=== PATIENT | male | born 1930 | race Caucasian/White ===

== ENCOUNTER → 2017-03-04 | Outpatient (REF) | payer MEDICARE, BC ==
[~2017-03-04] MED LIST: /ESOM40CA PO; /MOXI40TA OR; /MOXI40TA PO; /TAMS4CA OR; ACET50TA PO; ALB2.5NEB INH; AMLO10TAB OR; ASPI81TA83 OR; ATEN100T OR; COMBVENT INH; FLOVENT INH; FURO20TA2 OR; OMEP20TA7 OR; PLAV75TA2 OR; PRED20TA OR; PRED20TA PO; SENO8.6T9 PO; SIMV10TA2 OR; TIMO0.5S OU; VITA100T16 OR; VITA25003 SL
[2017-03-04 13:37] LABS: PERCENT SATURATION 7.7 % (19.7-37.4)
[2017-03-04 13:38] LABS: FOLATE 5.9 NG/ML
== END ==
LOC: M LAB REF 12:05
PROVIDERS: ATTEND Family Medicine
DX: D64.9 Anemia, unspecified (principal)

== ENCOUNTER → 2018-02-05 | Outpatient (REF) | payer MEDICARE, BC ==
[2018-02-05 11:04] LABS: FERRITIN 23 NG/ML (26-388); IRON (FE) 38 UG/DL (65-175); PERCENT SATURATION 9.7 % (19.7-50.0); TOTAL IRON BINDING CAPACITY 393 UG/DL (250-450)
== END ==
LOC: M LAB REF 10:37
DX: D64.9 Anemia, unspecified (principal)
CPT/HCPCS: 83550

== ENCOUNTER → 2018-05-18 | Outpatient (REF) | payer MEDICARE, BC ==
[2018-05-19 15:08] LABS: FERRITIN 23 NG/ML (26-388); IRON (FE) 35 UG/DL (65-175); PERCENT SATURATION 9.1 % (19.7-50.0); TOTAL IRON BINDING CAPACITY 384 UG/DL (250-450)
== END ==
LOC: M LAB REF 13:15
DX: D64.9 Anemia, unspecified (principal)
CPT/HCPCS: 83550

== ENCOUNTER 2018-06-04 22:26 | Inpatient (IN) | payer MEDICARE, BC ==
[2018-06-04] MEDS: NS 1,000 ML IV (23:14)
[2018-06-04 23:24] LABS: BASO % 0.5 % (0.0-1.0); EOS % 0.3 % (0.0-3.0); HEMATOCRIT 31.7 % (42.0-52.0); HEMOGLOBIN 10.1 g/dl (13.5-17.5); IMMATURE GRANULOCYTE % 0.3 % (0-3.0); LYMPH # 1.3 10^3/uL (1.5-4.5); LYMPH % 15.5 % (24.0-44.0); MEAN CORPUSCULAR HEMOGLOBIN 27.1 pg (27.0-33.0); MEAN CORPUSCULAR HGB CONC 31.9 g/dl (32.0-36.5); MONO # 0.5 10^3/uL (0.0-0.8); MONO % 5.6 % (0.0-5.0); NEUTROPHILS # 6.7 10^3/uL (1.8-7.7); NEUTROPHILS % 77.8 % (36.0-66.0); PLATELET COUNT, AUTOMATED 188 10^3/uL (150-450); RED BLOOD COUNT 3.73 10^6/uL (4.30-6.10); WHITE BLOOD COUNT 8.6 10^3/uL (4.0-10.0)
[2018-06-04 23:40] LABS: AMMONIA 20 uMOL/L (<32)
[2018-06-04 23:46] LABS: ACETAMINOPHEN LEVEL < 2.0 UG/ML (10.0-30.0); ALBUMIN 3.1 GM/DL (3.2-5.2); ALBUMIN/GLOBULIN RATIO 0.94 (1.00-1.93); ALKALINE PHOSPHATASE 98 U/L (45-117); ALT/SGPT 14 U/L (12-78); ANION GAP 8 MEQ/L (8-16); AST/SGOT 16 U/L (7-37); BILIRUBIN,DIRECT 0.3 MG/DL (0.0-0.2); BILIRUBIN,TOTAL 0.6 MG/DL (0.2-1.0); BLOOD UREA NITROGEN 16 MG/DL (7-18); CALCIUM LEVEL 8.4 MG/DL (8.8-10.2); CARBON DIOXIDE LEVEL 28 MEQ/L (21-32); CHLORIDE LEVEL 106 MEQ/L (98-107); CPK CREATINE PHOSPHOKINASE 93 U/L (39-308); CREATININE FOR GFR 0.89 MG/DL (0.70-1.30); GLOMERULAR FILTRATION RATE > 60.0 (>35); GLUCOSE, FASTING 101 MG/DL (70-100); POTASSIUM SERUM 3.8 MEQ/L (3.5-5.1); SALICYLATE LEVEL < 1.7 MG/DL (5.0-30.0); SODIUM LEVEL 142 MEQ/L (136-145); TOTAL PROTEIN 6.4 GM/DL (6.4-8.2); TROPONIN I 0.05 NG/ML (< 0.10)
[2018-06-04 23:52] LABS: MB/CK RELATIVE INDEX 2.15 (< OR =4)
[2018-06-05] MEDS: PANTOPRAZOLE 40MG TAB (PROTONIX) PO (01:15)
[2018-06-05] MEDS ORDERED: IPRATROPIUM 0.5MG/ALBUTEROL 2.5MG INH SOL UD 3ML (DUONEB)(J7620) INH (01:15)
[2018-06-05] MEDS: HEPARIN SOD (PORCINE) 5000 UNITS/ML VIAL SC ×3 (05:47→20:17)
[2018-06-05 07:41] LABS: HEMATOCRIT 30.1 % (42.0-52.0); HEMOGLOBIN 9.6 g/dl (13.5-17.5); MEAN CORPUSCULAR HEMOGLOBIN 27.2 pg (27.0-33.0); MEAN CORPUSCULAR HGB CONC 31.9 g/dl (32.0-36.5); MEAN CORPUSCULAR VOLUME 85.3 fl (80.0-96.0); PLATELET COUNT, AUTOMATED 168 10^3/uL (150-450); RED BLOOD COUNT 3.53 10^6/uL (4.30-6.10); RED CELL DISTRIBUTION WIDTH 18.8 % (11.5-14.5); WHITE BLOOD COUNT 6.2 10^3/uL (4.0-10.0)
[2018-06-05 08:00] LABS: ANION GAP 8 MEQ/L (8-16); BLOOD UREA NITROGEN 13 MG/DL (7-18); CALCIUM LEVEL 8.2 MG/DL (8.8-10.2); CARBON DIOXIDE LEVEL 26 MEQ/L (21-32); CHLORIDE LEVEL 108 MEQ/L (98-107); CREATININE FOR GFR 0.72 MG/DL (0.70-1.30); GLOMERULAR FILTRATION RATE > 60.0 (>35); GLUCOSE, FASTING 89 MG/DL (70-100); POTASSIUM SERUM 4.1 MEQ/L (3.5-5.1); SODIUM LEVEL 142 MEQ/L (136-145)
[2018-06-05] MEDS: CYANOCOBALAMIN 500 MCG TAB PO (08:59)
[2018-06-05] MEDS: ASPIRIN 81 MG ENTERIC TAB PO (09:00)
[2018-06-05] MEDS: amLODIPine 10 MG TAB PO (09:00)
[2018-06-05] MEDS: FLUTICASONE HFA 110 MCG 12 GM INHALER (FLOVENT) INH ×2 (11:15→19:02)
[2018-06-05] MEDS: TAMSULOSIN 0.4 MG CAP PO (20:16)
[2018-06-05] MEDS: SIMVASTATIN 20 MG TAB PO (20:16)
[2018-06-06] MEDS: HEPARIN SOD (PORCINE) 5000 UNITS/ML VIAL SC ×3 (05:57→23:33)
[2018-06-06 06:33] LABS: BASO % 0.4 % (0.0-1.0); EOS # 0.1 10^3/uL (0.0-0.50); EOS % 0.9 % (0.0-3.0); HEMATOCRIT 28.5 % (42.0-52.0); IMMATURE GRANULOCYTE % 0.3 % (0-3.0); LYMPH % 29.1 % (24.0-44.0); MEAN CORPUSCULAR HEMOGLOBIN 26.9 pg (27.0-33.0); MEAN CORPUSCULAR HGB CONC 31.6 g/dl (32.0-36.5); MEAN CORPUSCULAR VOLUME 85.3 fl (80.0-96.0); MONO # 0.4 10^3/uL (0.0-0.8); MONO % 6.2 % (0.0-5.0); NEUTROPHILS # 4.4 10^3/uL (1.8-7.7); NEUTROPHILS % 63.1 % (36.0-66.0); PLATELET COUNT, AUTOMATED 180 10^3/uL (150-450); RED BLOOD COUNT 3.34 10^6/uL (4.30-6.10); RED CELL DISTRIBUTION WIDTH 18.6 % (11.5-14.5)
[2018-06-06 07:02] LABS: ANION GAP 7 MEQ/L (8-16); BLOOD UREA NITROGEN 42 MG/DL (7-18); CALCIUM LEVEL 8.5 MG/DL (8.8-10.2); CARBON DIOXIDE LEVEL 26 MEQ/L (21-32); CHLORIDE LEVEL 105 MEQ/L (98-107); CREATININE FOR GFR 0.67 MG/DL (0.70-1.30); FERRITIN 17 NG/ML (26-388); GLOMERULAR FILTRATION RATE > 60.0 (>35); GLUCOSE, FASTING 98 MG/DL (70-100); IRON (FE) 103 UG/DL (65-175); POTASSIUM SERUM 4.6 MEQ/L (3.5-5.1); SODIUM LEVEL 138 MEQ/L (136-145)
[2018-06-06] MEDS: FLUTICASONE HFA 110 MCG 12 GM INHALER (FLOVENT) INH ×2 (08:55→21:26)
[2018-06-06] MEDS: ASPIRIN 81 MG ENTERIC TAB PO (08:57)
[2018-06-06] MEDS: amLODIPine 10 MG TAB PO (08:57)
[2018-06-06] MEDS: CYANOCOBALAMIN 500 MCG TAB PO (08:57)
[2018-06-06] MEDS: SIMVASTATIN 20 MG TAB PO (23:33)
[2018-06-06] MEDS: TAMSULOSIN 0.4 MG CAP PO (23:33)
[2018-06-07] MEDS: HEPARIN SOD (PORCINE) 5000 UNITS/ML VIAL SC ×3 (05:55→21:23)
[2018-06-07] MEDS: ASPIRIN 81 MG ENTERIC TAB PO (08:22)
[2018-06-07] MEDS: CYANOCOBALAMIN 500 MCG TAB PO (08:22)
[2018-06-07] MEDS: amLODIPine 10 MG TAB PO (08:22)
[2018-06-07] MEDS: FLUTICASONE HFA 110 MCG 12 GM INHALER (FLOVENT) INH ×2 (16:05→20:38)
[2018-06-07 20:16] LABS: BEDSIDE GLUCOSE 113 MG/DL (83-110)
[2018-06-07] MEDS: TAMSULOSIN 0.4 MG CAP PO (21:23)
[2018-06-07] MEDS: SIMVASTATIN 20 MG TAB PO (21:23)
[2018-06-08] MEDS: HEPARIN SOD (PORCINE) 5000 UNITS/ML VIAL SC ×3 (05:47→21:40)
[2018-06-08 06:37] LABS: HEMATOCRIT 20.7 % (42.0-52.0); MEAN CORPUSCULAR HEMOGLOBIN 26.6 pg (27.0-33.0); MEAN CORPUSCULAR HGB CONC 31.9 g/dl (32.0-36.5); MEAN CORPUSCULAR VOLUME 83.5 fl (80.0-96.0); PLATELET COUNT, AUTOMATED 156 10^3/uL (150-450); RED BLOOD COUNT 2.48 10^6/uL (4.30-6.10); RED CELL DISTRIBUTION WIDTH 18.9 % (11.5-14.5); WHITE BLOOD COUNT 4.8 10^3/uL (4.0-10.0)
[2018-06-08 06:49] LABS: ANION GAP 5 MEQ/L (8-16); BLOOD UREA NITROGEN 14 MG/DL (7-18); CALCIUM LEVEL 8.4 MG/DL (8.8-10.2); CARBON DIOXIDE LEVEL 27 MEQ/L (21-32); CHLORIDE LEVEL 106 MEQ/L (98-107); CREATININE FOR GFR 0.68 MG/DL (0.70-1.30); GLOMERULAR FILTRATION RATE > 60.0 (>35); GLUCOSE, FASTING 92 MG/DL (70-100); HEMOGLOBIN 6.6 g/dl (13.5-17.5); POTASSIUM SERUM 4.1 MEQ/L (3.5-5.1); SODIUM LEVEL 138 MEQ/L (136-145)
[2018-06-08] MEDS: FLUTICASONE HFA 110 MCG 12 GM INHALER (FLOVENT) INH ×2 (07:38→21:00)
[2018-06-08 08:47] LABS: BASO % 0.6 % (0.0-1.0); EOS # 0.1 10^3/uL (0.0-0.50); EOS % 1.7 % (0.0-3.0); IMMATURE GRANULOCYTE % 0.4 % (0-3.0); LYMPH # 1.2 10^3/uL (1.5-4.5); LYMPH % 25.9 % (24.0-44.0); MONO # 0.3 10^3/uL (0.0-0.8); MONO % 7.3 % (0.0-5.0); NEUTROPHILS % 64.1 % (36.0-66.0)
[2018-06-08 08:48] LABS: DIFF SLIDE NUMBER 52; PLATELET ESTIMATE NORMAL (NORMAL)
[2018-06-08] MEDS: ASPIRIN 81 MG ENTERIC TAB PO (09:37)
[2018-06-08] MEDS: CYANOCOBALAMIN 500 MCG TAB PO (09:37)
[2018-06-08] MEDS: amLODIPine 10 MG TAB PO (09:46)
[2018-06-08 10:01] LABS: HEMATOCRIT 23.2 % (42.0-52.0); HEMOGLOBIN 7.4 g/dl (13.5-17.5); MEAN CORPUSCULAR HEMOGLOBIN 27.4 pg (27.0-33.0); MEAN CORPUSCULAR HGB CONC 31.9 g/dl (32.0-36.5); MEAN CORPUSCULAR VOLUME 85.9 fl (80.0-96.0); PLATELET COUNT, AUTOMATED 174 10^3/uL (150-450); RED CELL DISTRIBUTION WIDTH 19.2 % (11.5-14.5)
[2018-06-08] MEDS: TAMSULOSIN 0.4 MG CAP PO (21:40)
[2018-06-08] MEDS: SIMVASTATIN 20 MG TAB PO (21:40)
[2018-06-08] MEDS: ONDANSETRON 4 MG TAB (S0181) PO (21:40)
[2018-06-09] MEDS: HEPARIN SOD (PORCINE) 5000 UNITS/ML VIAL SC ×3 (05:45→21:25)
[2018-06-09] MEDS: FLUTICASONE HFA 110 MCG 12 GM INHALER (FLOVENT) INH ×2 (07:57→21:24)
[2018-06-09] MEDS: amLODIPine 10 MG TAB PO (09:00)
[2018-06-09] MEDS: ASPIRIN 81 MG ENTERIC TAB PO (09:11)
[2018-06-09] MEDS: CYANOCOBALAMIN 500 MCG TAB PO (09:12)
[2018-06-09] MEDS: ACETAMINOPHEN TAB 650MG DOSE (2X325MG) PO ×2 (09:12→21:26)
[2018-06-09 09:49] LABS: HEMATOCRIT 25.6 % (42.0-52.0); MEAN CORPUSCULAR HEMOGLOBIN 27.2 pg (27.0-33.0); MEAN CORPUSCULAR HGB CONC 31.3 g/dl (32.0-36.5); MEAN CORPUSCULAR VOLUME 87.1 fl (80.0-96.0); PLATELET COUNT, AUTOMATED 214 10^3/uL (150-450); RED BLOOD COUNT 2.94 10^6/uL (4.30-6.10); RED CELL DISTRIBUTION WIDTH 19.5 % (11.5-14.5); WHITE BLOOD COUNT 6.9 10^3/uL (4.0-10.0)
[2018-06-09] MEDS ORDERED: PILL CRUSHER/CUTTER 1 EACH XX (13:30)
[2018-06-09] MEDS: TAMSULOSIN 0.4 MG CAP PO (21:26)
[2018-06-09] MEDS: SIMVASTATIN 20 MG TAB PO (21:26)
[2018-06-10] MEDS: HEPARIN SOD (PORCINE) 5000 UNITS/ML VIAL SC ×3 (06:26→21:10)
[2018-06-10] MEDS: FLUTICASONE HFA 110 MCG 12 GM INHALER (FLOVENT) INH ×2 (07:24→19:58)
[2018-06-10] MEDS: amLODIPine 10 MG TAB PO (09:18)
[2018-06-10] MEDS: CYANOCOBALAMIN 500 MCG TAB PO (09:18)
[2018-06-10] MEDS: ASPIRIN 81 MG ENTERIC TAB PO (09:19)
[2018-06-10] MEDS: TAMSULOSIN 0.4 MG CAP PO (21:10)
[2018-06-10] MEDS: SIMVASTATIN 20 MG TAB PO (21:10)
[2018-06-10] MEDS: ACETAMINOPHEN TAB 650MG DOSE (2X325MG) PO (21:11)
[2018-06-11] MEDS: HEPARIN SOD (PORCINE) 5000 UNITS/ML VIAL SC ×3 (05:40→21:07)
[2018-06-11] MEDS: FLUTICASONE HFA 110 MCG 12 GM INHALER (FLOVENT) INH ×2 (07:40→21:17)
[2018-06-11] MEDS ORDERED: E-Z-PAQUE 96% w/w SUSP 176GM BTL As Ordered (08:17)
[2018-06-11] MEDS ORDERED: E-Z-GAS II EFFERVESCENT PACKET (SODIUM BICARB./CITRIC ACID/SIMETHICONE) As Ordered (08:17)
[2018-06-11] MEDS ORDERED: E-Z-HD 98% w/w 340GM SUSP BTL As Ordered (08:18)
[2018-06-11] MEDS: amLODIPine 10 MG TAB PO (09:28)
[2018-06-11] MEDS: ASPIRIN 81 MG ENTERIC TAB PO (09:29)
[2018-06-11] MEDS: CYANOCOBALAMIN 500 MCG TAB PO (09:31)
[2018-06-11 09:32] LABS: HEMATOCRIT 23.1 % (42.0-52.0); HEMOGLOBIN 7.4 g/dl (13.5-17.5); MEAN CORPUSCULAR HEMOGLOBIN 26.9 pg (27.0-33.0); PLATELET COUNT, AUTOMATED 203 10^3/uL (150-450); RED BLOOD COUNT 2.75 10^6/uL (4.30-6.10); RED CELL DISTRIBUTION WIDTH 19.1 % (11.5-14.5); WHITE BLOOD COUNT 5.6 10^3/uL (4.0-10.0)
[2018-06-11 09:55] LABS: ANION GAP 9 MEQ/L (8-16); BLOOD UREA NITROGEN 15 MG/DL (7-18); CALCIUM LEVEL 8.8 MG/DL (8.8-10.2); CARBON DIOXIDE LEVEL 28 MEQ/L (21-32); CHLORIDE LEVEL 101 MEQ/L (98-107); CREATININE FOR GFR 0.77 MG/DL (0.70-1.30); GLOMERULAR FILTRATION RATE > 60.0 (>35); GLUCOSE, FASTING 114 MG/DL (70-100); POTASSIUM SERUM 4.2 MEQ/L (3.5-5.1); SODIUM LEVEL 138 MEQ/L (136-145)
[2018-06-11] MEDS: ACETAMINOPHEN TAB 650MG DOSE (2X325MG) PO ×2 (11:24→21:07)
[2018-06-11] MEDS: TAMSULOSIN 0.4 MG CAP PO (21:07)
[2018-06-11] MEDS: SIMVASTATIN 20 MG TAB PO (21:07)
[2018-06-12] MEDS: HEPARIN SOD (PORCINE) 5000 UNITS/ML VIAL SC ×3 (05:29→20:33)
[2018-06-12] MEDS: FLUTICASONE HFA 110 MCG 12 GM INHALER (FLOVENT) INH ×2 (07:34→20:44)
[2018-06-12] MEDS: amLODIPine 10 MG TAB PO (09:48)
[2018-06-12] MEDS: ASPIRIN 81 MG ENTERIC TAB PO (09:48)
[2018-06-12] MEDS: CYANOCOBALAMIN 500 MCG TAB PO (09:48)
[2018-06-12] MEDS: SIMVASTATIN 20 MG TAB PO (20:33)
[2018-06-12] MEDS: TAMSULOSIN 0.4 MG CAP PO (20:33)
[2018-06-12] MEDS: ACETAMINOPHEN TAB 650MG DOSE (2X325MG) PO (20:33)
[2018-06-13] MEDS: HEPARIN SOD (PORCINE) 5000 UNITS/ML VIAL SC ×3 (05:41→21:20)
[2018-06-13] MEDS: FLUTICASONE HFA 110 MCG 12 GM INHALER (FLOVENT) INH ×2 (07:38→21:12)
[2018-06-13] MEDS: ASPIRIN 81 MG ENTERIC TAB PO (09:47)
[2018-06-13] MEDS: CYANOCOBALAMIN 500 MCG TAB PO (09:47)
[2018-06-13] MEDS: amLODIPine 10 MG TAB PO (09:54)
[2018-06-13] MEDS: ACETAMINOPHEN TAB 650MG DOSE (2X325MG) PO ×3 (18:23→23:14)
[2018-06-13] MEDS: TAMSULOSIN 0.4 MG CAP PO (21:21)
[2018-06-13] MEDS: SIMVASTATIN 20 MG TAB PO (21:21)
[2018-06-14] MEDS: HEPARIN SOD (PORCINE) 5000 UNITS/ML VIAL SC (06:09)
[2018-06-14 06:52] LABS: HEMATOCRIT 21.1 % (42.0-52.0); MEAN CORPUSCULAR HEMOGLOBIN 26.7 pg (27.0-33.0); MEAN CORPUSCULAR HGB CONC 31.8 g/dl (32.0-36.5); MEAN CORPUSCULAR VOLUME 84.1 fl (80.0-96.0); PLATELET COUNT, AUTOMATED 224 10^3/uL (150-450); RED BLOOD COUNT 2.51 10^6/uL (4.30-6.10); RED CELL DISTRIBUTION WIDTH 18.7 % (11.5-14.5)
[2018-06-14 07:02] LABS: HEMOGLOBIN 6.7 g/dl (13.5-17.5)
[2018-06-14 07:05] LABS: ANION GAP 8 MEQ/L (8-16); BLOOD UREA NITROGEN 17 MG/DL (7-18); CALCIUM LEVEL 8.5 MG/DL (8.8-10.2); CARBON DIOXIDE LEVEL 26 MEQ/L (21-32); CHLORIDE LEVEL 104 MEQ/L (98-107); CREATININE FOR GFR 0.74 MG/DL (0.70-1.30); GLOMERULAR FILTRATION RATE > 60.0 (>35); GLUCOSE, FASTING 105 MG/DL (70-100); POTASSIUM SERUM 4.1 MEQ/L (3.5-5.1); SODIUM LEVEL 138 MEQ/L (136-145)
[2018-06-14] MEDS: FLUTICASONE HFA 110 MCG 12 GM INHALER (FLOVENT) INH ×2 (07:28→20:44)
[2018-06-14] MEDS: amLODIPine 10 MG TAB PO (09:00)
[2018-06-14] MEDS: CYANOCOBALAMIN 500 MCG TAB PO (09:02)
[2018-06-14] MEDS: PANTOPRAZOLE 40MG INJ (PROTONIX) (C9113) IV ×2 (10:51→22:00)
[2018-06-14] MEDS: NS 500 ML IV (10:51)
[2018-06-14 11:12] LABS: IMMEDIATE SPIN CROSSMATCH 1 1
[2018-06-14 15:55] LABS: HEMATOCRIT 25.9 % (42.0-52.0); HEMOGLOBIN 8.2 g/dl (13.5-17.5); MEAN CORPUSCULAR HEMOGLOBIN 27.1 pg (27.0-33.0); MEAN CORPUSCULAR HGB CONC 31.7 g/dl (32.0-36.5); MEAN CORPUSCULAR VOLUME 85.5 fl (80.0-96.0); PLATELET COUNT, AUTOMATED 243 10^3/uL (150-450); RED BLOOD COUNT 3.03 10^6/uL (4.30-6.10); RED CELL DISTRIBUTION WIDTH 18.4 % (11.5-14.5); WHITE BLOOD COUNT 8.5 10^3/uL (4.0-10.0)
[2018-06-14 21:27] LABS: HEMATOCRIT 24.3 % (42.0-52.0); HEMOGLOBIN 7.8 g/dl (13.5-17.5); MEAN CORPUSCULAR HEMOGLOBIN 27.5 pg (27.0-33.0); MEAN CORPUSCULAR HGB CONC 32.1 g/dl (32.0-36.5); MEAN CORPUSCULAR VOLUME 85.6 fl (80.0-96.0); PLATELET COUNT, AUTOMATED 213 10^3/uL (150-450); RED BLOOD COUNT 2.84 10^6/uL (4.30-6.10); RED CELL DISTRIBUTION WIDTH 18.2 % (11.5-14.5); WHITE BLOOD COUNT 8.1 10^3/uL (4.0-10.0)
[2018-06-14] MEDS: ACETAMINOPHEN TAB 650MG DOSE (2X325MG) PO (21:59)
[2018-06-14] MEDS: TAMSULOSIN 0.4 MG CAP PO (21:59)
[2018-06-14] MEDS: SIMVASTATIN 20 MG TAB PO (21:59)
[2018-06-15 07:21] LABS: HEMATOCRIT 23.1 % (42.0-52.0); HEMOGLOBIN 7.4 g/dl (13.5-17.5); MEAN CORPUSCULAR HEMOGLOBIN 26.8 pg (27.0-33.0); MEAN CORPUSCULAR VOLUME 83.7 fl (80.0-96.0); PLATELET COUNT, AUTOMATED 198 10^3/uL (150-450); RED BLOOD COUNT 2.76 10^6/uL (4.30-6.10); RED CELL DISTRIBUTION WIDTH 18.2 % (11.5-14.5); WHITE BLOOD COUNT 6.2 10^3/uL (4.0-10.0)
[2018-06-15] MEDS: FLUTICASONE HFA 110 MCG 12 GM INHALER (FLOVENT) INH ×2 (07:26→21:00)
[2018-06-15 07:40] LABS: ANION GAP 7 MEQ/L (8-16); BLOOD UREA NITROGEN 15 MG/DL (7-18); CALCIUM LEVEL 8.4 MG/DL (8.8-10.2); CARBON DIOXIDE LEVEL 25 MEQ/L (21-32); CHLORIDE LEVEL 107 MEQ/L (98-107); CREATININE FOR GFR 0.76 MG/DL (0.70-1.30); GLOMERULAR FILTRATION RATE > 60.0 (>35); GLUCOSE, FASTING 86 MG/DL (70-100); POTASSIUM SERUM 3.9 MEQ/L (3.5-5.1); SODIUM LEVEL 139 MEQ/L (136-145)
[2018-06-15] MEDS: CYANOCOBALAMIN 500 MCG TAB PO (09:00)
[2018-06-15] MEDS: PANTOPRAZOLE 40MG INJ (PROTONIX) (C9113) IV ×2 (10:02→21:10)
[2018-06-15 11:22] LABS: IMMEDIATE SPIN CROSSMATCH 1 1
[2018-06-15 14:07] LABS: FOLATE 6.4 NG/ML (>5.4); VITAMIN B12 LEVEL 1131 PG/ML (247-911)
[2018-06-15 16:56] LABS: HEMATOCRIT 27.6 % (42.0-52.0); HEMOGLOBIN 8.9 g/dl (13.5-17.5); MEAN CORPUSCULAR HEMOGLOBIN 27.6 pg (27.0-33.0); MEAN CORPUSCULAR HGB CONC 32.2 g/dl (32.0-36.5); MEAN CORPUSCULAR VOLUME 85.7 fl (80.0-96.0); PLATELET COUNT, AUTOMATED 207 10^3/uL (150-450); RED BLOOD COUNT 3.22 10^6/uL (4.30-6.10); RED CELL DISTRIBUTION WIDTH 18.2 % (11.5-14.5); WHITE BLOOD COUNT 7.8 10^3/uL (4.0-10.0)
[2018-06-15] MEDS: TAMSULOSIN 0.4 MG CAP PO (21:11)
[2018-06-15] MEDS: SIMVASTATIN 20 MG TAB PO (21:11)
[2018-06-15] MEDS: ACETAMINOPHEN TAB 650MG DOSE (2X325MG) PO (21:11)
[2018-06-15 21:22] LABS: HEMATOCRIT 27.3 % (42.0-52.0); HEMOGLOBIN 8.9 g/dl (13.5-17.5); MEAN CORPUSCULAR HEMOGLOBIN 27.9 pg (27.0-33.0); MEAN CORPUSCULAR HGB CONC 32.6 g/dl (32.0-36.5); MEAN CORPUSCULAR VOLUME 85.6 fl (80.0-96.0); PLATELET COUNT, AUTOMATED 199 10^3/uL (150-450); RED BLOOD COUNT 3.19 10^6/uL (4.30-6.10); RED CELL DISTRIBUTION WIDTH 18.1 % (11.5-14.5); WHITE BLOOD COUNT 8.7 10^3/uL (4.0-10.0)
[2018-06-15] MEDS: BISACODYL 5 MG TAB PO (22:09)
[2018-06-16 07:16] LABS: HEMATOCRIT 29.9 % (42.0-52.0); HEMOGLOBIN 9.7 g/dl (13.5-17.5); MEAN CORPUSCULAR HGB CONC 32.4 g/dl (32.0-36.5); MEAN CORPUSCULAR VOLUME 86.4 fl (80.0-96.0); PLATELET COUNT, AUTOMATED 210 10^3/uL (150-450); RED BLOOD COUNT 3.46 10^6/uL (4.30-6.10); RED CELL DISTRIBUTION WIDTH 17.9 % (11.5-14.5); WHITE BLOOD COUNT 5.8 10^3/uL (4.0-10.0)
[2018-06-16 07:23] LABS: ANION GAP 7 MEQ/L (8-16); BLOOD UREA NITROGEN 12 MG/DL (7-18); CALCIUM LEVEL 8.7 MG/DL (8.8-10.2); CARBON DIOXIDE LEVEL 27 MEQ/L (21-32); CHLORIDE LEVEL 105 MEQ/L (98-107); CREATININE FOR GFR 0.75 MG/DL (0.70-1.30); GLOMERULAR FILTRATION RATE > 60.0 (>35); GLUCOSE, FASTING 98 MG/DL (70-100); POTASSIUM SERUM 3.9 MEQ/L (3.5-5.1); SODIUM LEVEL 139 MEQ/L (136-145)
[2018-06-16] MEDS: FLUTICASONE HFA 110 MCG 12 GM INHALER (FLOVENT) INH ×2 (07:29→22:25)
[2018-06-16] MEDS: CYANOCOBALAMIN 500 MCG TAB PO (11:19)
[2018-06-16] MEDS: PANTOPRAZOLE 40MG INJ (PROTONIX) (C9113) IV ×2 (11:19→21:56)
[2018-06-16] MEDS: SIMVASTATIN 20 MG TAB PO (21:56)
[2018-06-16] MEDS: TAMSULOSIN 0.4 MG CAP PO (21:56)
[2018-06-17 05:55] LABS: HEMOGLOBIN 9.1 g/dl (13.5-17.5); MEAN CORPUSCULAR HEMOGLOBIN 27.3 pg (27.0-33.0); MEAN CORPUSCULAR HGB CONC 32.5 g/dl (32.0-36.5); MEAN CORPUSCULAR VOLUME 84.1 fl (80.0-96.0); PLATELET COUNT, AUTOMATED 205 10^3/uL (150-450); RED BLOOD COUNT 3.33 10^6/uL (4.30-6.10); RED CELL DISTRIBUTION WIDTH 17.8 % (11.5-14.5); WHITE BLOOD COUNT 5.8 10^3/uL (4.0-10.0)
[2018-06-17 06:19] LABS: ANION GAP 6 MEQ/L (8-16); BLOOD UREA NITROGEN 14 MG/DL (7-18); CALCIUM LEVEL 8.6 MG/DL (8.8-10.2); CARBON DIOXIDE LEVEL 28 MEQ/L (21-32); CHLORIDE LEVEL 105 MEQ/L (98-107); CREATININE FOR GFR 0.71 MG/DL (0.70-1.30); GLOMERULAR FILTRATION RATE > 60.0 (>35); GLUCOSE, FASTING 89 MG/DL (70-100); POTASSIUM SERUM 4.1 MEQ/L (3.5-5.1); SODIUM LEVEL 139 MEQ/L (136-145)
[2018-06-17] MEDS: FLUTICASONE HFA 110 MCG 12 GM INHALER (FLOVENT) INH ×2 (07:52→21:10)
[2018-06-17] MEDS: PANTOPRAZOLE 40MG INJ (PROTONIX) (C9113) IV ×2 (09:21→20:18)
[2018-06-17] MEDS: CYANOCOBALAMIN 500 MCG TAB PO (09:21)
[2018-06-17] MEDS: SIMVASTATIN 20 MG TAB PO (20:21)
[2018-06-17] MEDS: TAMSULOSIN 0.4 MG CAP PO (20:21)
[2018-06-17] MEDS: BISACODYL 5 MG TAB PO (20:21)
[2018-06-17] MEDS: ACETAMINOPHEN TAB 650MG DOSE (2X325MG) PO (20:22)
[2018-06-18 06:20] LABS: HEMATOCRIT 30.6 % (42.0-52.0); HEMOGLOBIN 9.7 g/dl (13.5-17.5); MEAN CORPUSCULAR HEMOGLOBIN 27.4 pg (27.0-33.0); MEAN CORPUSCULAR HGB CONC 31.7 g/dl (32.0-36.5); MEAN CORPUSCULAR VOLUME 86.4 fl (80.0-96.0); PLATELET COUNT, AUTOMATED 201 10^3/uL (150-450); RED BLOOD COUNT 3.54 10^6/uL (4.30-6.10); RED CELL DISTRIBUTION WIDTH 17.8 % (11.5-14.5); WHITE BLOOD COUNT 5.7 10^3/uL (4.0-10.0)
[2018-06-18 06:38] LABS: ANION GAP 6 MEQ/L (8-16); BLOOD UREA NITROGEN 13 MG/DL (7-18); CALCIUM LEVEL 8.8 MG/DL (8.8-10.2); CARBON DIOXIDE LEVEL 27 MEQ/L (21-32); CHLORIDE LEVEL 104 MEQ/L (98-107); CREATININE FOR GFR 0.73 MG/DL (0.70-1.30); GLOMERULAR FILTRATION RATE > 60.0 (>35); GLUCOSE, FASTING 86 MG/DL (70-100); POTASSIUM SERUM 4.3 MEQ/L (3.5-5.1); SODIUM LEVEL 137 MEQ/L (136-145)
[2018-06-18] MEDS: FLUTICASONE HFA 110 MCG 12 GM INHALER (FLOVENT) INH (08:39)
[2018-06-18] MEDS: PANTOPRAZOLE 40MG TAB (PROTONIX) PO (09:00)
[2018-06-18] MEDS: CYANOCOBALAMIN 500 MCG TAB PO (09:00)
== END 2018-06-18 13:16 | DRG 884 ==
LOC: M ED INP 06-05 01:01 → M MS5PR 06-05 02:23 → M ED 22:26
PROC: 30233N1 Transfusion of Nonautologous Red Blood Cells into Peripheral Vein, Percutaneous Approach (ICD-10-PCS; principal; 2018-06-14)
DX: F03.90 Unspecified dementia, unspecified severity, without behavioral disturbance, psychotic disturbance, mood disturbance, and anxiety (principal); K62.5 Hemorrhage of anus and rectum; R53.1 Weakness; E86.0 Dehydration; I10 Essential (primary) hypertension; J44.9 Chronic obstructive pulmonary disease, unspecified; E78.5 Hyperlipidemia, unspecified; N40.0 Benign prostatic hyperplasia without lower urinary tract symptoms; D64.9 Anemia, unspecified; Z87.891 Personal history of nicotine dependence; K21.9 Gastro-esophageal reflux disease without esophagitis; Z79.82 Long term (current) use of aspirin; Z79.899 Other long term (current) drug therapy; Z91.14 Patient's other noncompliance with medication regimen; K64.8 Other hemorrhoids

== ENCOUNTER → 2018-06-22 | Outpatient (REF) ==
[2018-06-22 08:33] LABS: HEMATOCRIT 30.1 % (42.0-52.0); HEMOGLOBIN 9.5 g/dl (13.5-17.5); MEAN CORPUSCULAR HGB CONC 31.6 g/dl (32.0-36.5); MEAN CORPUSCULAR VOLUME 85.5 fl (80.0-96.0); PLATELET COUNT, AUTOMATED 210 10^3/uL (150-450); RED BLOOD COUNT 3.52 10^6/uL (4.30-6.10); WHITE BLOOD COUNT 6.2 10^3/uL (4.0-10.0)
[2018-06-22 08:50] LABS: ALBUMIN 3.3 GM/DL (3.2-5.2); ALBUMIN/GLOBULIN RATIO 1.06 (1.00-1.93); ALKALINE PHOSPHATASE 81 U/L (45-117); ALT/SGPT 18 U/L (12-78); ANION GAP 7 MEQ/L (8-16); AST/SGOT 14 U/L (7-37); BILIRUBIN,TOTAL 0.8 MG/DL (0.2-1.0); BLOOD UREA NITROGEN 14 MG/DL (7-18); CALCIUM LEVEL 8.9 MG/DL (8.8-10.2); CARBON DIOXIDE LEVEL 29 MEQ/L (21-32); CHLORIDE LEVEL 102 MEQ/L (98-107); CREATININE FOR GFR 0.81 MG/DL (0.70-1.30); GLOMERULAR FILTRATION RATE > 60.0 (>35); GLUCOSE, FASTING 99 MG/DL (70-100); PROSTATIC SPECIFIC AG MONITOR 0.35 NG/ML (< 4.0); SODIUM LEVEL 138 MEQ/L (136-145); TOTAL PROTEIN 6.4 GM/DL (6.4-8.2)
== END ==
LOC: SKLAB2 07:00
DX: D64.9 Anemia, unspecified (principal); N40.0 Benign prostatic hyperplasia without lower urinary tract symptoms

== ENCOUNTER → 2018-06-29 | Outpatient (REF) ==
[2018-06-29 07:41] LABS: HEMATOCRIT 26.1 % (42.0-52.0); HEMOGLOBIN 8.2 g/dl (13.5-17.5); MEAN CORPUSCULAR HEMOGLOBIN 26.5 pg (27.0-33.0); MEAN CORPUSCULAR HGB CONC 31.4 g/dl (32.0-36.5); MEAN CORPUSCULAR VOLUME 84.2 fl (80.0-96.0); PLATELET COUNT, AUTOMATED 166 10^3/uL (150-450); RED CELL DISTRIBUTION WIDTH 18.4 % (11.5-14.5); WHITE BLOOD COUNT 6.8 10^3/uL (4.0-10.0)
== END ==
LOC: SKLAB2 11:25
DX: D64.9 Anemia, unspecified (principal)

== ENCOUNTER → 2018-07-03 | Outpatient (CLI) | payer MEDICARE, BC ==
[2018-07-03 12:37] LABS: HEMATOCRIT 28.9 % (42.0-52.0); HEMOGLOBIN 8.8 g/dl (13.5-17.5); MEAN CORPUSCULAR HEMOGLOBIN 25.4 pg (27.0-33.0); MEAN CORPUSCULAR HGB CONC 30.4 g/dl (32.0-36.5); MEAN CORPUSCULAR VOLUME 83.5 fl (80.0-96.0); PLATELET COUNT, AUTOMATED 193 10^3/uL (150-450); RED BLOOD COUNT 3.46 10^6/uL (4.30-6.10); RED CELL DISTRIBUTION WIDTH 19.1 % (11.5-14.5); WHITE BLOOD COUNT 8.9 10^3/uL (4.0-10.0)
[2018-07-03 12:52] LABS: ANION GAP 10 MEQ/L (8-16); BLOOD UREA NITROGEN 12 MG/DL (7-18); CALCIUM LEVEL 8.5 MG/DL (8.8-10.2); CARBON DIOXIDE LEVEL 25 MEQ/L (21-32); CHLORIDE LEVEL 98 MEQ/L (98-107); CREATININE FOR GFR 0.69 MG/DL (0.70-1.30); GLOMERULAR FILTRATION RATE > 60.0 (>35); GLUCOSE, FASTING 100 MG/DL (70-100); POTASSIUM SERUM 3.9 MEQ/L (3.5-5.1); SODIUM LEVEL 133 MEQ/L (136-145)
== END ==
LOC: M LAB 11:22
DX: J84.10 Pulmonary fibrosis, unspecified (principal); Z87.01 Personal history of pneumonia (recurrent); I51.7 Cardiomegaly; K44.9 Diaphragmatic hernia without obstruction or gangrene; R91.8 Other nonspecific abnormal finding of lung field
CPT/HCPCS: 71046

== ENCOUNTER → 2018-07-03 | Outpatient (REF) | LOC: SKLAB2 11:25 | DX: R05 Cough (principal) ==

== ENCOUNTER → 2018-07-06 | Outpatient (REF) ==
[2018-07-06 08:51] LABS: HEMOGLOBIN 8.5 g/dl (13.5-17.5); MEAN CORPUSCULAR HEMOGLOBIN 25.4 pg (27.0-33.0); MEAN CORPUSCULAR HGB CONC 31.5 g/dl (32.0-36.5); MEAN CORPUSCULAR VOLUME 80.8 fl (80.0-96.0); PLATELET COUNT, AUTOMATED 261 10^3/uL (150-450); RED BLOOD COUNT 3.34 10^6/uL (4.30-6.10); RED CELL DISTRIBUTION WIDTH 18.7 % (11.5-14.5); WHITE BLOOD COUNT 7.5 10^3/uL (4.0-10.0)
== END ==
LOC: SKLAB2 07:30
DX: D64.9 Anemia, unspecified (principal)

== ENCOUNTER → 2018-07-06 | Outpatient (CLI) | payer MEDICARE, BC | LOC: M ST 11:35 | DX: R13.10 Dysphagia, unspecified (principal) | CPT/HCPCS: 74230 ==

== ENCOUNTER → 2018-07-13 | Outpatient (REF) ==
[2018-07-13 08:07] LABS: HEMOGLOBIN 9.5 g/dl (13.5-17.5); MEAN CORPUSCULAR HEMOGLOBIN 25.2 pg (27.0-33.0); MEAN CORPUSCULAR HGB CONC 31.7 g/dl (32.0-36.5); MEAN CORPUSCULAR VOLUME 79.6 fl (80.0-96.0); PLATELET COUNT, AUTOMATED 281 10^3/uL (150-450); RED BLOOD COUNT 3.77 10^6/uL (4.30-6.10); RED CELL DISTRIBUTION WIDTH 19.4 % (11.5-14.5); WHITE BLOOD COUNT 6.4 10^3/uL (4.0-10.0)
== END ==
LOC: SKLAB2 08:00
DX: D64.9 Anemia, unspecified (principal)

== ENCOUNTER → 2018-07-17 | Outpatient (REF) | payer MEDICARE, BC | LOC: SKLAB2 15:03 | DX: R22.41 Localized swelling, mass and lump, right lower limb (principal) | CPT/HCPCS: 73660 ==

== ENCOUNTER → 2018-08-14 | Outpatient (REF) | payer MEDICARE, BC ==
[2018-08-14 14:41] LABS: ALBUMIN/GLOBULIN RATIO 0.97 (1.00-1.93); ALKALINE PHOSPHATASE 79 U/L (45-117); ALT/SGPT 17 U/L (12-78); ANION GAP 8 MEQ/L (8-16); AST/SGOT 14 U/L (7-37); BILIRUBIN,TOTAL 0.4 MG/DL (0.2-1.0); BLOOD UREA NITROGEN 13 MG/DL (7-18); CALCIUM LEVEL 8.6 MG/DL (8.8-10.2); CARBON DIOXIDE LEVEL 25 MEQ/L (21-32); CHLORIDE LEVEL 99 MEQ/L (98-107); GLOMERULAR FILTRATION RATE > 60.0 (>35); GLUCOSE, FASTING 109 MG/DL (70-100); POTASSIUM SERUM 4.5 MEQ/L (3.5-5.1); SODIUM LEVEL 132 MEQ/L (136-145); TOTAL PROTEIN 6.1 GM/DL (6.4-8.2)
[2018-08-14 15:07] LABS: ERYTHROCYTE SEDIMENTATION RATE 13 mm/hr (0-30)
[2018-08-17 11:28] LABS: C REACTIVE PROTEIN QUANTITATIV 3.29 MG/DL (0.00-0.30)
== END ==
LOC: SKLAB2 13:38
DX: M25.50 Pain in unspecified joint (principal)
CPT/HCPCS: 80053

== ENCOUNTER → 2018-08-19 | Outpatient (REF) | payer MEDICARE, BC ==
[2018-08-19 11:47] LABS: ERYTHROCYTE SEDIMENTATION RATE 7 mm/hr (0-30)
[2018-08-19 12:02] LABS: C REACTIVE PROTEIN QUANTITATIV 0.47 MG/DL (0.00-0.30)
[2018-08-19 12:02] LABS: URIC ACID 2.7 MG/DL (3.5-7.2)
== END ==
LOC: SKLAB2 07:35
DX: M19.90 Unspecified osteoarthritis, unspecified site (principal)
CPT/HCPCS: 84550

== ENCOUNTER → 2018-08-31 | Outpatient (REF) | payer MEDICARE, BC ==
[2018-08-31 10:22] LABS: ANION GAP 8 MEQ/L (8-16); BLOOD UREA NITROGEN 10 MG/DL (7-18); CALCIUM LEVEL 9.1 MG/DL (8.8-10.2); CARBON DIOXIDE LEVEL 28 MEQ/L (21-32); CHLORIDE LEVEL 99 MEQ/L (98-107); CREATININE FOR GFR 0.66 MG/DL (0.70-1.30); GLOMERULAR FILTRATION RATE > 60.0 (>35); GLUCOSE, FASTING 91 MG/DL (70-100); POTASSIUM SERUM 4.2 MEQ/L (3.5-5.1); SODIUM LEVEL 135 MEQ/L (136-145)
== END ==
LOC: SKLAB2 09:00
DX: D64.9 Anemia, unspecified (principal)
CPT/HCPCS: 36415

== ENCOUNTER → 2018-09-07 | Outpatient (REF) | payer MEDICARE, BC ==
[2018-09-07 11:04] LABS: HEMATOCRIT 32.6 % (42.0-52.0); HEMOGLOBIN 10.3 g/dl (13.5-17.5); MEAN CORPUSCULAR HEMOGLOBIN 25.8 pg (27.0-33.0); MEAN CORPUSCULAR HGB CONC 31.6 g/dl (32.0-36.5); MEAN CORPUSCULAR VOLUME 81.7 fl (80.0-96.0); PLATELET COUNT, AUTOMATED 174 10^3/uL (150-450); RED BLOOD COUNT 3.99 10^6/uL (4.30-6.10); WHITE BLOOD COUNT 5.1 10^3/uL (4.0-10.0)
== END ==
LOC: SKLAB2 07:00
DX: D64.9 Anemia, unspecified (principal)
CPT/HCPCS: 85027

== ENCOUNTER → 2018-10-08 | Outpatient (REF) | payer MEDICARE, BC ==
[2018-10-08 15:58] LABS: HEMATOCRIT 35.2 % (42.0-52.0); HEMOGLOBIN 11.3 g/dl (13.5-17.5); MEAN CORPUSCULAR HEMOGLOBIN 27.8 pg (27.0-33.0); MEAN CORPUSCULAR HGB CONC 32.1 g/dl (32.0-36.5); MEAN CORPUSCULAR VOLUME 86.5 fl (80.0-96.0); PLATELET COUNT, AUTOMATED 180 10^3/uL (150-450); RED BLOOD COUNT 4.07 10^6/uL (4.30-6.10); RED CELL DISTRIBUTION WIDTH 21.3 % (11.5-14.5); WHITE BLOOD COUNT 5.1 10^3/uL (4.0-10.0)
[2018-10-08 16:40] LABS: ANION GAP 7 MEQ/L (8-16); BLOOD UREA NITROGEN 14 MG/DL (7-18); CALCIUM LEVEL 8.8 MG/DL (8.8-10.2); CARBON DIOXIDE LEVEL 29 MEQ/L (21-32); CHLORIDE LEVEL 98 MEQ/L (98-107); CREATININE FOR GFR 0.66 MG/DL (0.70-1.30); GLOMERULAR FILTRATION RATE > 60.0 (>35); GLUCOSE, FASTING 100 MG/DL (70-100); NT-PRO BNP 1159 PG/ML (<450); POTASSIUM SERUM 4.3 MEQ/L (3.5-5.1); SODIUM LEVEL 134 MEQ/L (136-145)
== END ==
LOC: SKLAB2 15:03
DX: I73.9 Peripheral vascular disease, unspecified (principal); R60.9 Edema, unspecified
CPT/HCPCS: 84443

== ENCOUNTER → 2018-10-12 | Outpatient (REF) | payer MEDICARE, BC ==
[2018-10-12 08:39] LABS: HEMATOCRIT 37.6 % (42.0-52.0); HEMOGLOBIN 12.3 g/dl (13.5-17.5); MEAN CORPUSCULAR HEMOGLOBIN 27.7 pg (27.0-33.0); MEAN CORPUSCULAR HGB CONC 32.7 g/dl (32.0-36.5); MEAN CORPUSCULAR VOLUME 84.7 fl (80.0-96.0); PLATELET COUNT, AUTOMATED 187 10^3/uL (150-450); RED BLOOD COUNT 4.44 10^6/uL (4.30-6.10); RED CELL DISTRIBUTION WIDTH 21.2 % (11.5-14.5); WHITE BLOOD COUNT 4.7 10^3/uL (4.0-10.0)
== END ==
LOC: SKLAB2 07:00
DX: D64.9 Anemia, unspecified (principal)
CPT/HCPCS: 85027

== ENCOUNTER → 2018-11-09 | Outpatient (REF) | payer MEDICARE, BC ==
[2018-11-09 08:22] LABS: HEMOGLOBIN 13.8 g/dl (13.5-17.5); MEAN CORPUSCULAR HEMOGLOBIN 29.5 pg (27.0-33.0); MEAN CORPUSCULAR HGB CONC 32.9 g/dl (32.0-36.5); MEAN CORPUSCULAR VOLUME 89.7 fl (80.0-96.0); PLATELET COUNT, AUTOMATED 180 10^3/uL (150-450); RED BLOOD COUNT 4.68 10^6/uL (4.30-6.10); RED CELL DISTRIBUTION WIDTH 19.3 % (11.5-14.5)
== END ==
LOC: SKLAB2 08:00
DX: D64.9 Anemia, unspecified (principal)
CPT/HCPCS: 85027

== ENCOUNTER → 2018-12-08 | Outpatient (REF) | payer MEDICARE, BC ==
[~2018-12-08] MED LIST changes: -AMLO10TAB OR; +AMLO10TAB PO; +ASPI81TAEC PO; +COMBAER6 INH; +FLOM0.4C39 PO; +PATIENT COMMENT; +SIMV20TA2 PO; +VITA100072 PO
--- NOTE | 2018-12-08 11:02 | REP ---
Chest x-ray: Portable single view. History: COPD. Congestion. Comparison chest x-ray is from July 03, 2018. Findings: There is some clothing artifact above the clavicles bilaterally. The lungs are symmetrically aerated and otherwise clear. No infiltrate is seen. Cardiomegaly is observed as before. The thoracic aorta is quite tortuous and calcific. There are advanced degenerative changes in the shoulders and diffuse osteopenia is noted. Impression: Cardiomegaly again noted. No infiltrate seen. Electronically Signed by Yovani Mayorga MD 12/08/2018 01:49 P
== END ==
LOC: SKLAB2 09:50
PROVIDERS: ATTEND Internal Medicine
DX: R09.81 Nasal congestion (principal); J44.9 Chronic obstructive pulmonary disease, unspecified

== ENCOUNTER → 2018-12-08 | Outpatient (REF) | payer MEDICARE, BC | LOC: SKLAB2 11:35 | PROVIDERS: ATTEND Internal Medicine | DX: R05 Cough (principal); J44.9 Chronic obstructive pulmonary disease, unspecified; R09.81 Nasal congestion ==

== ENCOUNTER → 2018-12-14 | Outpatient (REF) | payer MEDICARE, BC ==
[2018-12-14 08:13] LABS: HEMATOCRIT 38.2 % (42.0-52.0); HEMOGLOBIN 13.2 g/dl (13.5-17.5); MEAN CORPUSCULAR HGB CONC 34.6 g/dl (32.0-36.5); MEAN CORPUSCULAR VOLUME 89.7 fl (80.0-96.0); PLATELET COUNT, AUTOMATED 170 10^3/uL (150-450); RED BLOOD COUNT 4.26 10^6/uL (4.30-6.10); WHITE BLOOD COUNT 8.3 10^3/uL (4.0-10.0)
[2018-12-14 08:44] LABS: ALBUMIN 2.8 GM/DL (3.2-5.2); ALT/SGPT 22 U/L (12-78); BILIRUBIN,TOTAL 0.9 MG/DL (0.2-1.0); BLOOD UREA NITROGEN 17 MG/DL (7-18); CARBON DIOXIDE LEVEL 29 MEQ/L (21-32); CHLORIDE LEVEL 101 MEQ/L (98-107); CREATININE FOR GFR 0.52 MG/DL (0.70-1.30); GLOMERULAR FILTRATION RATE > 60.0 (>35); GLUCOSE, FASTING 100 MG/DL (70-100); POTASSIUM SERUM 3.9 MEQ/L (3.5-5.1); SODIUM LEVEL 139 MEQ/L (136-145); TOTAL PROTEIN 6.1 GM/DL (6.4-8.2)
== END ==
LOC: SKLAB2 07:00
PROVIDERS: ATTEND Internal Medicine
DX: D64.9 Anemia, unspecified (principal)

== ENCOUNTER → 2018-12-14 | Outpatient (REF) | payer MEDICARE, BC ==
--- NOTE | 2018-12-14 18:03 | REP ---
Chest two views HISTORY: Cough Comparison: 12/08/2018 A minimal increase in interstitial markings is present in the lungs consistent with chronic interstitial fibrosis. The cardiac silhouette is enlarged. The pulmonary vasculature is normal in appearance. The bony structure is intact. IMPRESSION: 1. Chronic interstitial fibrosis. 2. Cardiomegaly. Electronically Signed by Ricky Webster MD 12/14/2018 05:54 P
== END ==
LOC: SKLAB2 15:09
PROVIDERS: ATTEND Internal Medicine
DX: R05 Cough (principal); J44.9 Chronic obstructive pulmonary disease, unspecified

== ENCOUNTER → 2018-12-14 | Outpatient (CLI) | payer MEDICARE, BC | LOC: M RAD 17:07 | PROVIDERS: ATTEND Internal Medicine | DX: R09.02 Hypoxemia (principal) ==

== ENCOUNTER → 2019-01-04 | Outpatient (REF) | payer MEDICARE, BC ==
[2019-01-04 14:04] LABS: BLOOD UREA NITROGEN 15 MG/DL (7-18); CALCIUM LEVEL 8.8 MG/DL (8.8-10.2); CARBON DIOXIDE LEVEL 28 MEQ/L (21-32); CHLORIDE LEVEL 97 MEQ/L (98-107); CREATININE FOR GFR 0.62 MG/DL (0.70-1.30); GLOMERULAR FILTRATION RATE > 60.0 (>35); GLUCOSE, FASTING 93 MG/DL (70-100); SODIUM LEVEL 134 MEQ/L (136-145)
== END ==
LOC: SKLAB2 11:29
PROVIDERS: ATTEND Internal Medicine
DX: R60.9 Edema, unspecified (principal)

== ENCOUNTER → 2019-01-11 | Outpatient (REF) | payer MEDICARE, BC ==
[2019-01-11 08:04] LABS: HEMATOCRIT 41.3 % (42.0-52.0); HEMOGLOBIN 14.1 g/dl (13.5-17.5); MEAN CORPUSCULAR HEMOGLOBIN 31.8 pg (27.0-33.0); MEAN CORPUSCULAR HGB CONC 34.1 g/dl (32.0-36.5); MEAN CORPUSCULAR VOLUME 93.2 fl (80.0-96.0); PLATELET COUNT, AUTOMATED 165 10^3/uL (150-450); RED BLOOD COUNT 4.43 10^6/uL (4.30-6.10); WHITE BLOOD COUNT 7.8 10^3/uL (4.0-10.0)
== END ==
LOC: SKLAB2 07:00
PROVIDERS: ATTEND Internal Medicine
DX: D64.9 Anemia, unspecified (principal)

== ENCOUNTER → 2019-02-08 | Outpatient (REF) | payer MEDICARE, BC ==
[2019-02-08 08:56] LABS: HEMATOCRIT 41.8 % (42.0-52.0); HEMOGLOBIN 14.2 g/dl (13.5-17.5); MEAN CORPUSCULAR HEMOGLOBIN 32.6 pg (27.0-33.0); MEAN CORPUSCULAR VOLUME 95.9 fl (80.0-96.0); PLATELET COUNT, AUTOMATED 189 10^3/uL (150-450); RED BLOOD COUNT 4.36 10^6/uL (4.30-6.10); WHITE BLOOD COUNT 7.1 10^3/uL (4.0-10.0)
== END ==
LOC: SKLAB2 07:30
PROVIDERS: ATTEND Internal Medicine
DX: D64.9 Anemia, unspecified (principal)

== ENCOUNTER → 2019-03-08 | Outpatient (REF) | payer MEDICARE, BC ==
[~2019-03-08] MED LIST changes: -/ESOM40CA PO; -/MOXI40TA OR; -/MOXI40TA PO; -/TAMS4CA OR; -ACET50TA PO; +AVEL1TAB2 OR; +AVEL1TAB2 PO; +FLOM0.4C39 OR; +MAPA500T17 PO; +NEXI1CAP3 PO; +VITA100018 PO; -VITA100072 PO
[2019-03-08 07:41] LABS: HEMATOCRIT 40.8 % (42.0-52.0); HEMOGLOBIN 13.8 g/dl (13.5-17.5); MEAN CORPUSCULAR HEMOGLOBIN 32.4 pg (27.0-33.0); MEAN CORPUSCULAR HGB CONC 33.8 g/dl (32.0-36.5); MEAN CORPUSCULAR VOLUME 95.8 fl (80.0-96.0); PLATELET COUNT, AUTOMATED 156 10^3/uL (150-450); RED BLOOD COUNT 4.26 10^6/uL (4.30-6.10); WHITE BLOOD COUNT 6.5 10^3/uL (4.0-10.0)
== END ==
LOC: SKLAB2 07:30
PROVIDERS: ATTEND Internal Medicine
DX: D64.9 Anemia, unspecified (principal)

== ENCOUNTER → 2019-04-12 | Outpatient (REF) | payer MEDICARE, BC ==
[2019-04-12 07:46] LABS: HEMATOCRIT 43.2 % (42.0-52.0); HEMOGLOBIN 14.6 g/dl (13.5-17.5); MEAN CORPUSCULAR HEMOGLOBIN 32.2 pg (27.0-33.0); MEAN CORPUSCULAR HGB CONC 33.8 g/dl (32.0-36.5); MEAN CORPUSCULAR VOLUME 95.2 fl (80.0-96.0); PLATELET COUNT, AUTOMATED 168 10^3/uL (150-450); RED BLOOD COUNT 4.54 10^6/uL (4.30-6.10); WHITE BLOOD COUNT 6.2 10^3/uL (4.0-10.0)
== END ==
LOC: SKLAB2 07:00
PROVIDERS: ATTEND Internal Medicine
DX: D64.9 Anemia, unspecified (principal)

== ENCOUNTER 2019-04-26 14:22 | Emergency (ER) | payer MEDICARE, BC ==
[2019-04-26] MEDS ORDERED: DERMABOND TOPICAL SKIN ADHESIVE TOP ONE (14:30)
[2019-04-26] MEDS ORDERED: DEPA1TAB PO ×2 (14:36→15:44)
[2019-04-26] MEDS ORDERED: FERR325T3 PO (14:37)
[2019-04-26] MEDS ORDERED: OMEP10CASR PO (14:37)
[2019-04-26] MEDS ORDERED: FURO40TA2 PO (14:38)
[2019-04-26] MEDS ORDERED: ADACEL/BOOSTRIX VACCINE (DIPHTH/PERTUSS/ACELL/TETANUS)0.5ML SYR (90715) IM ONE (14:45)
--- NOTE | 2019-04-26 14:53 | REP ---
Clinical: Trauma. Fall. Comparison: 06/04/2018 . Findings: Age-related atrophy with periventricular leukomalacia and microvascular ischemic changes are appreciated. 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 The ventricles and sulci are symmetric. Pineda-white differentiation is maintained. There is no evidence for acute intracranial hemorrhage, mass/mass effect, pathology or infarction. No extra-axial fluid collection. Calvarium is intact. Paranasal sinuses and mastoid air cells are clear. 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 No acute intracranial hemorrhage, infarction, or mass/mass effect. Electronically Signed by Rick Mathis MD 04/26/2019 02:44 P
--- NOTE | 2019-04-26 14:55 | REP ---
Clinical: Trauma. Fall. Technique: Axial noncontrast images from the skull base to the thoracic inlet with coronal and sagittal re-formations. Findings: Moderate multilevel degenerative disc osteophyte complexes are appreciated along with mild diffuse osteopenia. Lordosis is maintained. Chronic grade 1 anterolisthesis at the C3-4 noted. No acute fracture / compression injury or acute subluxation identified. Spinal canal is patent. Posterior elements and spinous processes are intact. Paravertebral soft tissues are normal. Impression: Age-related osteopenia and moderate multilevel degenerative spondylosis. No acute fracture / compression injury or acute subluxation appreciated. Electronically Signed by Rick Mathis MD 04/26/2019 02:46 P
--- NOTE | 2019-04-26 14:57 | REP ---
Clinical: Trauma. Technique: Axial images through the facial bones with coronal and sagittal re-formations. Findings: A very subtle depressed nasal bone fracture with overlying soft tissue swelling is appreciated. No further acute fracture or dislocation is appreciated. Bilateral zygomatic arches are symmetric. The mandible and temporomandibular joints appear intact. Paranasal sinuses and mastoid air cells are clear and without fluid level to suggest occult injury. Bilateral orbits are symmetric and normal. Impression: Very subtle depressed nasal bone fracture. Electronically Signed by Rick Mathis MD 04/26/2019 02:48 P
[2019-04-26 14:58] LABS: BASO % 0.4 % (0.0-1.0); EOS % 0.1 % (0.0-3.0); HEMATOCRIT 38.7 % (42.0-52.0); HEMOGLOBIN 13.4 g/dl (13.5-17.5); LYMPH # 1.4 10^3/uL (1.5-4.5); LYMPH % 18.5 % (24.0-44.0); MEAN CORPUSCULAR HGB CONC 34.6 g/dl (32.0-36.5); MEAN CORPUSCULAR VOLUME 95.3 fl (80.0-96.0); MONO # 0.4 10^3/uL (0.0-0.8); MONO % 5.5 % (0.0-5.0); NEUTROPHILS # 5.5 10^3/uL (1.8-7.7); NEUTROPHILS % 75.2 % (36.0-66.0); PLATELET COUNT, AUTOMATED 181 10^3/uL (150-450); RED BLOOD COUNT 4.06 10^6/uL (4.30-6.10); WHITE BLOOD COUNT 7.3 10^3/uL (4.0-10.0)
[2019-04-26 15:17] LABS: INR 1.07
[2019-04-26 15:18] LABS: PARTIAL THROMBOPLASTIN TIME 34.7 SECONDS (25.4-37.6)
[2019-04-26 15:23] LABS: BLOOD UREA NITROGEN 16 MG/DL (7-18); CALCIUM LEVEL 8.4 MG/DL (8.8-10.2); CARBON DIOXIDE LEVEL 29 MEQ/L (21-32); CHLORIDE LEVEL 98 MEQ/L (98-107); CREATININE FOR GFR 0.73 MG/DL (0.70-1.30); GLOMERULAR FILTRATION RATE > 60.0 (>35); GLUCOSE, FASTING 138 MG/DL (70-100); SODIUM LEVEL 136 MEQ/L (136-145)
[2019-04-26] MEDS ORDERED: ENEMENE PR (15:44)
[2019-04-26] MEDS ORDERED: AMLO10TA5 PO (15:44)
[2019-04-26] MEDS ORDERED: ACET-683 PO (15:44)
[2019-04-26] MEDS ORDERED: ALB2.5NEB INH (15:44)
[2019-04-26] MEDS ORDERED: FLOM0.4C39 PO (15:44)
[2019-04-26] MEDS ORDERED: SIMV20TA2 PO (15:44)
[2019-04-26] MEDS ORDERED: GOOD81CH PO (15:44)
[2019-04-26] MEDS ORDERED: DULC10SU2 PR (15:44)
[2019-04-26] MEDS ORDERED: MOM30SS PO (15:44)
[2019-04-26] MEDS ORDERED: LASI40TA9 PO (15:44)
[2019-04-26] MEDS ORDERED: FERR220L PO (15:44)
[2019-04-26] MEDS ORDERED: OMEP10CA78 PO (15:44)
[2019-04-26] MEDS ORDERED: FLUT11IN INH (15:44)
[2019-04-26] MEDS ORDERED: SYST1SOL4 OU (15:44)
[2019-04-26] MEDS ORDERED: ACET-907 PO (15:44)
[2019-04-26] MEDS ORDERED: B-12100021 PO (15:44)
[2019-04-26] MEDS ORDERED: BACT800T5 PO (16:04)
[2019-04-26 16:46] VITALS: BP 122/79
== END 2019-04-26 16:48 | disposition home or self-care (01) ==
LOC: M ED 14:22
DX: S02.2XXA Fracture of nasal bones, initial encounter for closed fracture (principal); W01.0XXA Fall on same level from slipping, tripping and stumbling without subsequent striking against object, initial encounter; Y92.128 Other place in nursing home as the place of occurrence of the external cause; I10 Essential (primary) hypertension; J44.9 Chronic obstructive pulmonary disease, unspecified; K21.9 Gastro-esophageal reflux disease without esophagitis; N40.0 Benign prostatic hyperplasia without lower urinary tract symptoms; Z79.899 Other long term (current) drug therapy; Z79.82 Long term (current) use of aspirin

== ENCOUNTER → 2019-05-10 | Outpatient (REF) | payer MEDICARE, BC ==
[~2019-05-10] MED LIST changes: +ACET-683 PO; +ACET-907 PO; +AMLO10TA5 PO; +B-12100021 PO; +BACT800T5 PO; +DEPA1TAB PO; +DULC10SU2 PR; +ENEMENE PR; +FERR220L PO; +FERR325T3 PO; +FLUT11IN INH; +FURO40TA2 PO; +GOOD81CH PO; +LASI40TA9 PO; +MOM30SS PO; +OMEP10CA78 PO; +OMEP10CASR PO; +SYST1SOL4 OU
[2019-05-10 07:27] LABS: HEMATOCRIT 36.1 % (42.0-52.0); HEMOGLOBIN 12.3 g/dl (13.5-17.5); MEAN CORPUSCULAR HEMOGLOBIN 32.3 pg (27.0-33.0); MEAN CORPUSCULAR HGB CONC 34.1 g/dl (32.0-36.5); MEAN CORPUSCULAR VOLUME 94.8 fl (80.0-96.0); PLATELET COUNT, AUTOMATED 192 10^3/uL (150-450); RED BLOOD COUNT 3.81 10^6/uL (4.30-6.10); WHITE BLOOD COUNT 6.1 10^3/uL (4.0-10.0)
== END ==
LOC: SKLAB2 07:00
PROVIDERS: ATTEND Internal Medicine
DX: D64.9 Anemia, unspecified (principal)

== ENCOUNTER → 2019-06-07 | Outpatient (REF) | payer MEDICARE, BC ==
[2019-06-07 07:32] LABS: HEMATOCRIT 39.5 % (42.0-52.0); HEMOGLOBIN 13.4 g/dl (13.5-17.5); MEAN CORPUSCULAR HEMOGLOBIN 32.6 pg (27.0-33.0); MEAN CORPUSCULAR HGB CONC 33.9 g/dl (32.0-36.5); MEAN CORPUSCULAR VOLUME 96.1 fl (80.0-96.0); PLATELET COUNT, AUTOMATED 191 10^3/uL (150-450); RED BLOOD COUNT 4.11 10^6/uL (4.30-6.10); WHITE BLOOD COUNT 6.2 10^3/uL (4.0-10.0)
[2019-06-07 08:05] LABS: ALBUMIN 3.1 GM/DL (3.2-5.2); ALT/SGPT 14 U/L (12-78); BILIRUBIN,TOTAL 0.6 MG/DL (0.2-1.0); BLOOD UREA NITROGEN 12 MG/DL (7-18); CALCIUM LEVEL 8.7 MG/DL (8.8-10.2); CARBON DIOXIDE LEVEL 32 MEQ/L (21-32); CHLORIDE LEVEL 99 MEQ/L (98-107); CREATININE FOR GFR 0.63 MG/DL (0.70-1.30); GLOMERULAR FILTRATION RATE > 60.0 (>35); GLUCOSE, FASTING 84 MG/DL (70-100); POTASSIUM SERUM 4.1 MEQ/L (3.5-5.1); SODIUM LEVEL 136 MEQ/L (136-145); TOTAL PROTEIN 6.2 GM/DL (6.4-8.2)
== END ==
LOC: SKLAB2 07:00
PROVIDERS: ATTEND Internal Medicine
DX: D64.9 Anemia, unspecified (principal); Z12.5 Encounter for screening for malignant neoplasm of prostate
CPT/HCPCS: 36415; 80053; 85027; G0103

== ENCOUNTER → 2019-07-12 | Outpatient (REF) | payer MEDICARE, BC ==
[~2019-07-12] MED LIST changes: +FERR1ELX PO; -FERR220L PO; -GOOD81CH PO; +GOOD81CH2 PO
[2019-07-12 08:14] LABS: HEMATOCRIT 38.8 % (42.0-52.0); HEMOGLOBIN 13.4 g/dl (13.5-17.5); MEAN CORPUSCULAR HEMOGLOBIN 33.3 pg (27.0-33.0); MEAN CORPUSCULAR HGB CONC 34.5 g/dl (32.0-36.5); MEAN CORPUSCULAR VOLUME 96.5 fl (80.0-96.0); PLATELET COUNT, AUTOMATED 173 10^3/uL (150-450); RED BLOOD COUNT 4.02 10^6/uL (4.30-6.10); WHITE BLOOD COUNT 4.7 10^3/uL (4.0-10.0)
== END ==
LOC: SKLAB2 07:00
PROVIDERS: ATTEND Internal Medicine
DX: D64.9 Anemia, unspecified (principal)

== ENCOUNTER → 2019-07-29 | Outpatient (REF) | payer MEDICARE, BC ==
[~2019-07-29] MED LIST changes: +ALBU0.63 INH; +AMLO5TAB6 PO
[2019-07-29 08:40] LABS: BLOOD UREA NITROGEN 15 MG/DL (7-18); CALCIUM LEVEL 8.8 MG/DL (8.8-10.2); CARBON DIOXIDE LEVEL 29 MEQ/L (21-32); CHLORIDE LEVEL 94 MEQ/L (98-107); CREATININE FOR GFR 0.58 MG/DL (0.70-1.30); GLOMERULAR FILTRATION RATE > 60.0 (>35); GLUCOSE, FASTING 77 MG/DL (70-100); POTASSIUM SERUM 3.9 MEQ/L (3.5-5.1); SODIUM LEVEL 131 MEQ/L (136-145)
== END ==
LOC: SKLAB2 07:00
PROVIDERS: ATTEND Internal Medicine
DX: I50.9 Heart failure, unspecified (principal)

== ENCOUNTER 2019-08-02 14:42 | Inpatient (IN) | payer MEDICARE, BC ==
[~2019-08-02] VITALS: Ht 167.6 cm; Wt 51.0 kg
[~2019-08-02 14:42] MED LIST changes: -ALBU0.63 INH; -AMLO5TAB6 PO; -SIMV20TA2 PO; +SIMV20TA22 PO
[2019-08-02] MEDS ORDERED: IPRATROPIUM 0.5MG/ALBUTEROL 2.5MG INH SOL UD 3ML (DUONEB)(J7620) NEB ONE (15:00)
[2019-08-02] MEDS ORDERED: ALBUTEROL SULFATE 2.5 MG/0.5 ML INH NEB SOLN INH ONE (15:00)
[2019-08-02] MEDS ORDERED: ALBU0.63 INH (15:17)
[2019-08-02] MEDS ORDERED: AMLO5TAB6 PO (15:17)
[2019-08-02 15:25] LABS: VENOUS BASE EXCESS 2.8 (-2.0-2.0); VENOUS HCO3 28.7 MEQ/L (23.0-27.0); VENOUS O2 SATURATION 83.9 % (60.0-80.0); VENOUS PARTIAL PRESSURE CO2 49.2 mmHg (38.0-50.0); VENOUS PARTIAL PRESSURE O2 49.7 mmHg (30.0-50.0); VENOUS PH 7.384 UNITS (7.330-7.430); VENOUS STANDARD HCO3 26.6 MEQ/L; VENOUS TOTAL CO2 30.2 MEQ/L (24.0-28.0)
[2019-08-02 15:26] LABS: BASO % 0.3 % (0.0-1.0); EOS % 0.2 % (0.0-3.0); HEMATOCRIT 37.5 % (42.0-52.0); HEMOGLOBIN 13.3 g/dl (13.5-17.5); LYMPH # 1.8 10^3/uL (1.5-5.0); LYMPH % 21.2 % (24.0-44.0); MEAN CORPUSCULAR HEMOGLOBIN 33.9 pg (27.0-33.0); MEAN CORPUSCULAR HGB CONC 35.5 g/dl (32.0-36.5); MEAN CORPUSCULAR VOLUME 95.7 fl (80.0-96.0); MONO # 0.4 10^3/uL (0.0-0.8); NEUTROPHILS # 6.4 10^3/uL (1.5-8.5); NEUTROPHILS % 73.8 % (36.0-66.0); PLATELET COUNT, AUTOMATED 190 10^3/uL (150-450); RED BLOOD COUNT 3.92 10^6/uL (4.30-6.10); WHITE BLOOD COUNT 8.7 10^3/uL (4.0-10.0)
[2019-08-02 15:43] LABS: INR 1.05; PROTHROMBIN TIME 13.4 SECONDS (11.8-14.0)
[2019-08-02 15:45] LABS: D-DIMER QUANT 1961.2 ng/ml (<500)
--- NOTE | 2019-08-02 15:45 | REP ---
Clinical: Cough and dyspnea. Alfonso: 12/14/2018. Findings: This time and cardiac silhouette are within normal limits and stable. Lung nunez demonstrate chronic COPD/emphysematous changes with scattered fibrosis and scarring. Superimposed right lower lobe infiltrate is suggested. No effusion. No pneumothorax. Skeletal structures demonstrate osteopenia and degenerative changes. Impression: Chronic changes with subtle superimposed right lower lobe infiltrate. Electronically Signed by Rick Mathis MD 08/02/2019 03:37 P
[2019-08-02 15:52] LABS: ALBUMIN 3.1 GM/DL (3.2-5.2); ALT/SGPT 12 U/L (12-78); BILIRUBIN,DIRECT 0.3 MG/DL (0.0-0.2); BILIRUBIN,TOTAL 0.8 MG/DL (0.2-1.0); BLOOD UREA NITROGEN 14 MG/DL (7-18); CALCIUM LEVEL 8.5 MG/DL (8.8-10.2); CARBON DIOXIDE LEVEL 31 MEQ/L (21-32); CHLORIDE LEVEL 92 MEQ/L (98-107); CK-MB VALUE MASS 3.9 NG/ML (<3.6); CPK CREATINE PHOSPHOKINASE 66 U/L (39-308); GLOMERULAR FILTRATION RATE > 60.0 (>35); GLUCOSE, FASTING 126 MG/DL (70-100); MB/CK RELATIVE INDEX 5.91 (< OR =4); NT-PRO BNP 1226 PG/ML (<450); POTASSIUM SERUM 3.9 MEQ/L (3.5-5.1); SODIUM LEVEL 130 MEQ/L (136-145); TOTAL PROTEIN 6.2 GM/DL (6.4-8.2); TROPONIN I < 0.02 NG/ML (< 0.10)
[2019-08-02] MEDS ORDERED: ISOVUE-370 76% 100ML VIAL (Q9967) As Ordered ONE (16:52)
[2019-08-02] MEDS ORDERED: PIPERACILLIN/TAZOBACTAM SOD 3.375 GM in D5W MINI-BAG PLUS 50 ML IV ONE (18:00)
--- NOTE | 2019-08-02 18:05 | REPVR ---
EXAM: CT Angiography Chest With Contrast EXAM DATE/TIME: 08/02/2019 5:00 PM CLINICAL HISTORY: 89 years old, male; Other: Hypoxia TECHNIQUE: Imaging protocol: Computed tomographic angiography of the chest with intravenous contrast. 3D rendering: MIP reconstructed images were created and reviewed. Radiation optimization: All CT scans at this facility use at least one of these dose optimization techniques: automated exposure control; mA and/or kV adjustment per patient size (includes targeted exams where dose is matched to clinical indication); or iterative reconstruction. Contrast material: ISOVUE 370; Contrast volume: 75 ml; Contrast route: IV; COMPARISON: CR PORTABLE CHEST X-RAY 08/02/2019 3:08 PM FINDINGS: Pulmonary arteries: Peripheral pulmonary artery evaluation limited by cardiac and respiratory motion artifact. Central pulmonary arteries show no intraluminal defect suggestive of clot. Aorta: Aorta shows atherosclerotic change. No focal aneurysm. Imaging phase is suboptimal but no obvious evidence of aortic dissection is seen. Lungs: Centrilobular emphysema is seen diffusely in the lungs. Pulmonary fibrosis changes are present and there are patchy groundglass densities in the right middle lobe and right lower lobe which could represent foci of pneumonia without consolidation. No convincing evidence of a lung mass Pulmonary vascular/interstitial pattern does not suggest active pulmonary edema. Pleural space: No pleural effusion or pneumothorax. Heart: No pericardial effusion or overt cardiac enlargement Mediastinum: Large hiatal hernia measuring 8 cm. Lymph nodes: No enlarged mediastinal lymph nodes. Bones/joints: Multi-level, age-related thoracic degenerative disc disease is present. Soft tissues: Unremarkable. IMPRESSION: 1. No evidence of acute, central pulmonary embolus. Peripheral vessel evaluation is limited by motion artifact. 2. Centrilobular emphysema with subpleural pulmonary fibrosis and questionable non-consolidated pneumonia or alveolitis in the right middle lobe and right lower lobe 3. Large hiatal hernia measuring 8 cm which can be associated with reflux Electronically signed by: Rishabh Keene On 08/02/2019 18:05:14 PM
[2019-08-02] MEDS ORDERED: ACETAMINOPHEN 500 MG TAB PO SCH (21:00)
[2019-08-02] MEDS: TAMSULOSIN 0.4 MG CAP PO SCH (21:00)
[2019-08-02] MEDS: NS 1,000 ML IV SCH (21:44)
[2019-08-02 22:00] VITALS: BP 121/80
[2019-08-02] MEDS: IPRATROPIUM 0.5MG/ALBUTEROL 2.5MG INH SOL UD 3ML (DUONEB)(J7620) NEB SCH (22:58)
[2019-08-02] MEDS ORDERED: BISACODYL 10 MG SUPP PR PRN (23:00)
[2019-08-02] MEDS ORDERED: ALBUTEROL SULFATE 2.5 MG/0.5 ML INH NEB SOLN INH PRN (23:00)
[2019-08-02] MEDS ORDERED: DIVALPROEX SPRINKLE 125 MG CAP PO ONE (23:00)
[2019-08-02] MEDS ORDERED: OLANZapine INTRAMUSCULAR 10 MG VIAL (S0166) IM PRN (23:15)
[2019-08-02 23:30] VITALS: O2SAT 94
[2019-08-02 23:36] LABS: ABG BASE EXCESS 0.4 (-2.0-2.0); ABG HCO3 22.8 MEQ/L (22.0-26.0); ABG O2 SATURATION 98.2 % (95.0-99.0); ABG PARTIAL PRESSURE CO2 30.6 mmHg (35.0-45.0); ABG PARTIAL PRESSURE O2 101.1 mmHg (75.0-100.0); ABG STANDARD HCO3 24.8 MEQ/L (22.0-26.0); ABG TOTAL CO2 23.7 MEQ/L (23.0-31.0)
--- NOTE | 2019-08-02 23:44 | HPEPDOC ---
General Date of Admission Aug 02, 2019 at 18:58 Date of Service: Aug 02, 2019 Primary Care Physician: NOAM HESS DO Attending Physician: GUILLERMO MCKAY MD Chief Complaint The patient is a 89-year-old male admitted with a reason for visit of Aspiration Into Airway. Source: Family, EMS notes reviewed, [facility] records, Old records Exam Limitations: Dementia, Other (Nonverbal) Timing/Duration: Unsure Severity: Moderate Associated Symptoms: Shortness of breath History of Present Illness 89-year-old male brought into the ED by EMS from [facility] due to patient choking on his food during lunch today experiencing marked shortness of breath. Patient making gestures that he cannot read when he swallows his food and drink. He is alert, awake and oriented to self and non verbal. He lives in. Mr. Castro has a significant medical history of COPD with emphysema per imaging x-ray, diastolic heart failure, repeated falls, anoxic brain syndrome, venous insufficiency, angina pectoris, Down syndrome, autism, chronic knee pain, bilateral inguinal, PVC. Hyphema Right eye, dry eyes,essential hypertension, orthostatic hypotension, epilepsy, autism, and enlarged prostate. Imaging studies completed while patient is in the emergency room at [facility]. His CT chest shows no pulmonary embolism. At this time. We will be following up on his chest x-ray, AP and lateral. His CMP is complete that shows: Creatinine increasing from 2.0 at 1503 to 2.5 at 2027 to 2.2 at 1503. Patient will be admitted under hospitalist program to the [facility] floor observation unit. Home Medications Scheduled Acetaminophen (Acetaminophen) 500 Mg Tablet, 500 MG PO TID, (Reported) Amlodipine Besylate (Amlodipine Besylate) 5 Mg Tablet, 5 MG PO DAILY, (Reported) Aspirin (Aspirin) 81 Mg Tab.chew, 81 MG PO DAILY, (Reported) Cyanocobalamin (Vitamin B-12) (B-12) 1,000 Mcg Tablet, 1,000 MCG PO DAILY, (Reported) Divalproex Sodium (Depakote) 125 Mg Tablet.dr, 125 MG PO QHS, (Reported) Ferrous Sulfate (Ferrous Sulfate) 220 Mg/5 Ml Solution, 7.5 ML PO DAILY, (Reported) Fluticasone Propionate (Flovent Hfa) 110 Mcg/Act Aer.w.adap, 2 PUFF INH BID, (Reported) Furosemide (Lasix) 40 Mg Tablet, 40 MG PO DAILY, (Reported) Omeprazole (Omeprazole) 10 Mg Capsule.dr, 10 MG PO DAILY, (Reported) Propylene Glycol/Peg 400/Pf (Systane 0.3-0.4% Eye Drop) 1 Each Droperette, 1 DRP OU BID, (Reported) Simvastatin (Simvastatin) 20 Mg Tablet, 20 MG PO QHS, (Reported) Tamsulosin HCl (Flomax) 0.4 Mg Capsule, 0.8 MG PO QHS, (Reported) Scheduled PRN Acetaminophen (Tylenol) 325 Mg Tablet, 650 MG PO Q4H PRN for PAIN, (Reported) Albuterol Sulfate (Albuterol Sulfate) 0.63 Mg/3 Ml Vial.neb, 0.63 MG INH Q6H PRN for SOB/WHEEZING, (Reported) Bisacodyl (Dulcolax) 10 Mg Supp.rect, 10 MG OK DAILY PRN for CONSTIPATION, (Reported) Milk Of Magnesia (Milk of Magnesia) 2,400 Mg/10 Ml Oral.susp, 10 ML PO DAILY PRN for CONSTIPATION, (Reported) Sodium Phosphate,Tarrant-Dibasic (Enema) 133 Ml Enema, 1 JERARDO OK DAILY PRN for CONSTIPATION, (Reported) Allergies Coded Allergies: No Known Allergies (Verified , 03/08/05) Past Medical History Medical History Emphysema COPD, dementia with behavioral disturbance, chronic venous insufficiency, anoxic brain syndrome, hyperlipidemia, diastolic heart failure, peripheral vascular disease, iron deficiency anemia, hypema right eye, repeated falls, angina pectoris, epilepsy, autism, chronic knee pain, essential hypertension, TIA, BPH, prostate cancer with radiation 2005. Respiratory failure, Surgical History 2009right inguinal hernia repair. 2011carotid endarterectomy Bilateral leg vascular surgery Family History Significant Family History: Noncontributory Social History * Smoker: former Smoker, cigarettes (per patient's son and daughter) Alcohol: Denies Drugs: denies Recent Travel/Sick Contacts: Denies: Recent travel, Recent sick contacts Psychosocial History: Anxiety, Dementia (with Behavioral Disturbance, Down Syndrome, Autism), Mental handicap A-FIB/CHADSVASC A-FIB History Current/History of A-Fib/PAF?: No Review of Systems Constitutional: Reports: Fatigue, Other (patient's son and daughter assisted with RS and health history) ENT: Denies: Head Aches, Ear Pain, Dysphagia, Sinus Congestion, Post Nasal Drip, Sore Throat, Epistaxis, Other Symptoms Skin: Denies: Rash, Lesions, Jaundice, Bruising, Itching, Dry, Breakdown, Nail Changes, Other Pulmonary: Reports: Dyspnea, Cough Cardiovascular: Denies: Chest Pain, Palpitations, Orthopnea, Paroxysmal Noc. Dyspnea, Edema, Lt Headedness, Other Symptoms Gastrointestinal: Reports: Nausea, Other Symptoms (choking on food); Denies: Vomiting, Abdominal Pain, Diarrhea, Constipation, Melena, Hematochezia Genitourinary: Reports: Incontinence Hematologic: Denies: Bruising, Bleeding Excessively, Petecchia, Purpura, Enlarged Lymph Nodes, Other Hematologic Endocrine: Denies: Polydipsia, Polyphagia, Polyuria, Heat Intolerance, Cold Intolerance, Other Endocrine Sx Musculoskeletal: Reports: Joint Pain, Muscle Pain Neurological: Reports: Weakness, Change in speech (nonverbal), Confusion Psych: Reports: Anxiety, Memory Issues, Other Psych (autistic, dementia,) Physical Examination General Exam: Positive: Alert, Mild Distress (plan on IV lying and side rails, took a swing at the nurse) Eye Exam: Positive: Conjunctiva & lids normal, Sclera icteric ENT Exam: Positive: Atraumatic, Nares Patent Neck Exam: Positive: Supple Chest Exam: Positive: Diminished Heart Exam: Positive: Tachycardic Telemetry: Positive: Sinus, Tachycardia Abdomen Exam: Positive: Normal bowel sounds, Soft Extremity Exam: Positive: Clubbing Skin Exam: Positive: Breakdown, Other skin issue (stage I buttocks) Neuro Exam: Positive: Normal Tone Psych Exam: Positive: Anxiety, Other (nonverbal; awake; agressive and attempting to grab/hit the nurse who has trying to re-position him) Vital Signs Vital Signs Date Time Temp Pulse Resp B/P (MAP) Pulse Ox O2 Delivery O2 Flow Rate FiO2 08/02/19 20:30 105 24 108/61 (77) 97 Venturi Mask 15.0 40 08/02/19 15:20 97.8 Laboratory Data Labs 24H Laboratory Tests 2 08/02/19 15:04: Immature Granulocyte % (Auto) 0.5, White Blood Count 8.7, Red Blood Count 3.92L, Hemoglobin 13.3L, Hematocrit 37.5L, Mean Corpuscular Volume 95.7, Mean Corpuscular Hemoglobin 33.9H, Mean Corpuscular Hemoglobin Concent 35.5, Red Cell Distribution Width 13.8, Platelet Count 190, Neutrophils (%) (Auto) 73.8H, Lymphocytes (%) (Auto) 21.2L, Monocytes (%) (Auto) 4.0, Eosinophils (%) (Auto) 0.2, Basophils (%) (Auto) 0.3, Neutrophils # (Auto) 6.4, Lymphocytes # (Auto) 1.8, Monocytes # (Auto) 0.4, Eosinophils # (Auto) 0.0, Basophils # (Auto) 0.0, Nucleated Red Blood Cells % (auto) 0.0, Prothrombin Time 13.4, Prothromb Time International Ratio 1.05, D-Dimer, Quantitative 1961.20H, Blood Gas Bicarbonate Standard 26.6, Venous Blood pH 7.384, Venous Blood Partial Pressure CO2 49.2, Venous Blood Partial Pressure O2 49.7, Venous Blood Total Carbon Dioxide 30.2H, Venous Blood HCO3 28.7H, Venous Blood Oxygen Saturation 83.9H, Venous Blood Base Excess 2.8H, Anion Gap 7L, Glomerular Filtration Rate > 60.0, Lactic Acid Level 2.0, Calcium Level 8.5L, Aspartate Amino Transf (AST/SGOT) 14, Alanine Aminotransferase (ALT/SGPT) 12, Alkaline Phosphatase 85, Total Bilirubin 0.8, Direct Bilirubin 0.3H, Total Creatine Kinase 66, Creatine Kinase MB 3.9H, Creatine Kinase MB Relative Index 5.91H, Troponin I < 0.02, EB-Pvb-F-Type Natriuretic Peptide 1226H, Total Protein 6.2L, Albumin 3.1L, Albumin/Globulin Ratio 1.00, Thyroid Stimulating Hormone (TSH) 1.600 08/02/19 20:27: CBC/BMP Laboratory Tests 08/02/19 15:04 Red Blood Count 3.92 L, Mean Corpuscular Volume 95.7, Mean Corpuscular Hemoglobin 33.9 H, Mean Corpuscular Hemoglobin Concent 35.5, Red Cell Distribution Width 13.8, Neutrophils (%) (Auto) 73.8 H, Lymphocytes (%) (Auto) 21.2 L, Monocytes (%) (Auto) 4.0, Eosinophils (%) (Auto) 0.2, Basophils (%) (Auto) 0.3, Neutrophils # (Auto) 6.4, Lymphocytes # (Auto) 1.8, Monocytes # (Auto) 0.4, Eosinophils # (Auto) 0.0, Basophils # (Auto) 0.0 Microbiology Microbiology 08/02/19 Blood Culture, Received Pending 08/02/19 Blood Culture, Received Pending 08/02/19 Blood Culture, Received Pending 08/02/19 Blood Culture, Received Pending 08/02/19 Gram Stain, Received Pending 08/02/19 Sputum Culture, Received Pending Assessment/Plan 89-year-old male brought into the ED by EMS from [facility] due to patient choking on his food during lunch today experiencing marked shortness of breath. Patient making gestures that he cannot read when he swallows his food and drink. He is alert, awake and oriented to self and non verbal. He lives in. Mr. Castro has a significant medical history of COPD with emphysema per imaging x-ray, diastolic heart failure, repeated falls, anoxic brain syndrome, venous insufficiency, angina pectoris, Down syndrome, autism, chronic knee pain, bilateral inguinal, PVC. Hyphema Right eye, dry eyes, essential hypertension, orthostatic hypotension, epilepsy, autism, and enlarged prostate. Imaging studies completed while patient is in the emergency room at [facility]. His CT chest shows no pulmonary embolism. At this time. We will be following up on his chest x-ray, AP and lateral. His CMP is complete that shows: Creatinine increasing from 2.0 at 1503 to 2.5 at 2027 to 2.2 at 1503. Patient will be admitted under hospitalist program to the Med-Surg floor observation unit. Personally reviewed patient's CT chest imaging which shows opacities, right lower lobe. Final readings, no evidence of acute central pulmonary embolism. Central lobular emphysema with subpleural pulmonary fibrosis and non-con solid pneumonia are alveolitis in the right middle and right lower lobe. Large pain in the hernia was seen measuring approximately 8 cm which could be the cause of patient's GERD. & Personally reviewed the patient's EKG in the ED, which shows sinus rhythm with occasional supraventricular premature complexes with moderate intraventricular conduction delay. Had prolonged QT intervals. Vent rate 82, OK 153, QRS duration 114, QT/QTc 397/464, PRT axis 70 5 82. 1) Aspiration into airway (Probably Aspiration Pneumonia)-Acute -Admit to Observation Unit Med-Surg with remote telemetry and pulse oximetry due to hypoxia -NPO (exception for sips of water to swallow Depakote sprinkles medication) Speech to conduct swallow study evaluation. -If speech clears Cardiac diet, Pureed with Honey Thickened Fluids -Monitor labs: UA with reflex to C/S, CMP, CBC, Lactic Acid, Procalcitonin -IVF resuscitation 75 cc/hr via Peripheral IV -Strict I&O's, Daily Weight -Fall Risk -Sepsis workup pending Blood cultures x2, Sputum Cultures x 2 Dyspnea-Acute -DuoNeb nebulizer treatment q 6 hours as needed -Ventimask with HiFlow Oxygen. Will try to wean patient to Nasal Cannula (N/C) with goal O2 saturation 88-92% on lowest O2 setting. -ABG stat and repeat ABG COPD with Emphysema-Chronic -Supplemental Oxygen 2-4 L as needed via N/C and may switch to Ventimask. Goal is to keep O2 saturation 88-92% -Continue Flovent inhaler 2 inhalations Epilepsy-Chronic -Seizures precautions -Neuro checks q 2 hours -Continue long term medications Depakote 125 mg po at bedtime (will switch over to sprinkles due to patient aspirating/dysphagia) -Depakote level with AM labs Essential Hypertension-Chronic -Monitor blood pressure -EKG 12 lead Diastolic Congestive Heart Failure-Chronic -pro-T BnP -Continue medications: Furosemide 40 mg by mouth daily. Will regional climate change analyst to 20 mg IV daily until passes swallow study CAD-chronic. -Continue aspirin 81 mg daily by mouth once passes swallow study. Epilepsy (anoxic brain syndrome).Chronic. Depakote level. Continue Depakote on 125 mg by mouth at bedtime. Will switch over to Depakote on 125 mg sprinkles at bedtime due to aspiration Dementia with Behavioral Disturbances-Chronic- -Re-direct patient -Give Zyprexa 2.5 mg IM only for {if patient is not Re-directable after 4 documented attempts, call provider before 4th attempt and before giving medication} severe agitation. GERD-Chronic -On Omeprazole will hold as not hospital formulary. Will place patient on Protonix 40 mg IV daily Hyperlipidemia-Chronic -Hold Simvastatin 20 mg po at bedtime until passes swallow study Hyphema and Dry eye-Chronic -Continue using Systane. Will switch to hospital equivalent Refresh instill 2 drops both eyes twice daily Prognosis: Fair. DVT prophylaxis: ISABELLA stockings/SCDs bilateral lower extremities. Discharge: Pending Problems (1) Aspiration into airway Status: Acute Response to Treatment: Worse Discussed With: Camp Director, Patient, Family with Pt Consent Problem Specific Plan: Monitor Clinically, Repeat Labs Plan / VTE VTE Prophylaxis Ordered?: Yes VTE Exclusion Mechanical Proph: Jules Lower Ex DVT Plan IVF: Initiate Diet: Make NPO Activity: Bedrest Therapy: Speech Medications: Change to IV, Replete Electrolytes IV Respiratory: Wean Oxygen Diagnostics: Repeat Labs in AM, Obtain Cultures Anticipated Discharge: Prison Advanced Directives: MOLST Form is available (with limitations), Do Not Resuscitate (DNR), Do Not Intubate (DNI) JEREMY STRANGE Aug 02, 2019 21:22
--- NOTE | 2019-08-03 00:49 | ECGEPIP ---
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
[2019-08-03] MEDS ORDERED: ACETAMINOPHEN 650 MG SUPP PR PRN (02:15)
[2019-08-03] MEDS: IPRATROPIUM 0.5MG/ALBUTEROL 2.5MG INH SOL UD 3ML (DUONEB)(J7620) NEB SCH ×4 (04:38→19:27)
[2019-08-03 06:00] VITALS: BP 122/71
[2019-08-03 06:12] LABS: HEMATOCRIT 35.4 % (42.0-52.0); HEMOGLOBIN 12.5 g/dl (13.5-17.5); MEAN CORPUSCULAR HEMOGLOBIN 32.6 pg (27.0-33.0); MEAN CORPUSCULAR HGB CONC 35.3 g/dl (32.0-36.5); MEAN CORPUSCULAR VOLUME 92.2 fl (80.0-96.0); PLATELET COUNT, AUTOMATED 192 10^3/uL (150-450); RED BLOOD COUNT 3.84 10^6/uL (4.30-6.10); WHITE BLOOD COUNT 15.8 10^3/uL (4.0-10.0)
[2019-08-03 06:33] LABS: ALBUMIN 2.8 GM/DL (3.2-5.2); ALT/SGPT 10 U/L (12-78); BILIRUBIN,TOTAL 1.1 MG/DL (0.2-1.0); BLOOD UREA NITROGEN 12 MG/DL (7-18); CALCIUM LEVEL 8.7 MG/DL (8.8-10.2); CARBON DIOXIDE LEVEL 28 MEQ/L (21-32); CHLORIDE LEVEL 96 MEQ/L (98-107); CREATININE FOR GFR 0.59 MG/DL (0.70-1.30); GLOMERULAR FILTRATION RATE > 60.0 (>35); GLUCOSE, FASTING 111 MG/DL (70-100); MAGNESIUM LEVEL 1.9 MG/DL (1.8-2.4); POTASSIUM SERUM 3.5 MEQ/L (3.5-5.1); SODIUM LEVEL 131 MEQ/L (136-145); TOTAL PROTEIN 6.1 GM/DL (6.4-8.2)
[2019-08-03 06:40] LABS: ABG BASE EXCESS 4.2 (-2.0-2.0); ABG O2 SATURATION 97.7 % (95.0-99.0); ABG PARTIAL PRESSURE CO2 34.7 mmHg (35.0-45.0); ABG PARTIAL PRESSURE O2 97.3 mmHg (75.0-100.0); ABG STANDARD HCO3 28.2 MEQ/L (22.0-26.0); ABG TOTAL CO2 28.1 MEQ/L (23.0-31.0); ABG pH (ARTERIAL) 7.509 UNITS (7.350-7.450)
[2019-08-03] MEDS: FLUTICASONE HFA 110 MCG 12 GM INHALER (FLOVENT) INH SCH ×2 (08:00→19:27)
[2019-08-03] MEDS: FUROSEMIDE 40 MG/4 ML VIAL (J1940) IV SCH (08:52)
[2019-08-03] MEDS: PANTOPRAZOLE 40MG INJ (PROTONIX) (C9113) IV SCH (08:52)
[2019-08-03 08:53] VITALS: BP 126/68
[2019-08-03] MEDS: POLYVINYL ALCOHOL OPHTH SOLN 15 ML(LIQUITEARS) OU SCH ×2 (08:56→21:00)
[2019-08-03] MEDS: NS 1,000 ML IV SCH (08:57)
[2019-08-03] MEDS ORDERED: amLODIPine 5 MG TAB PO SCH (09:00)
--- NOTE | 2019-08-03 11:52 | IPNPDOC ---
Text Note Date of Service The patient was seen on 08/03/19. NOTE Subjective: Patient seen and examined at bedside. Son at bedside. Patient is non-verbal, unable to provide any information. Awake and alert however. Objective: General: lying comfortably in bed, elderly, frail, chronically ill appearing HEENT: NC/AT Lungs: diminished breath sounds Heart: +S1S2, RRR Abd: soft, NT, +BS Ext: no edema A/P: 89 yo male from [facility] brought by EMS for shortness of breath, with PMHx of pulmonary fibrosis, COPD/emphysema (Dr. Quach), hypertensive heart disease, CAD/HFpEF (Dr. Singer), repeated falls, anoxic brain syndrome, venous insufficiency/PAD (Dr. Nye), diabetes, hyperlipidemia, BPH, chronic knee pain, hypertension, orthostatic hypotension, epilepsy, and prostate CA. # Aspiration PNA - remote telemetry and pulse oximetry due to hypoxia -NPO (exception for sips of water to swallow Depakote sprinkles medication) Speech to conduct swallow study evaluation pending -Sepsis workup pending Blood cultures x2, Sputum Cultures x 2 #acute hypoxic respiratory failure -DuoNeb nebulizer treatment q 6 hours as needed -Ventimask with HiFlow Oxygen. Will try to wean patient to Nasal Cannula (N/C) with goal O2 saturation 88-92% on lowest O2 setting. -ABG noted #COPD with Emphysema-Chronic -Supplemental Oxygen 2-4 L as needed via N/C and may switch to Ventimask. Goal is to keep O2 saturation 88-92% -Continue Flovent inhaler 2 inhalations #Epilepsy-Chronic --Continue pen[facility]ent[facility] medications Depakote 125 mg po at bedtime (will switch over to sprinkles due to patient aspirating/dysphagia) -Depakote level with AM labs #Hypertension-Chronic #HFpEF - continue home meds - lasix 20 mg IV daily for now #CAD -Continue aspirin 81 mg daily by mouth once passes swallow study. #Epilepsy (anoxic brain syndrome).Chronic. Continue Depakote on 125 mg by mouth at bedtime. Will switch over to Depakote on 125 mg sprinkles at bedtime due to aspiration #Dementia with Behavioral Disturbances-Chronic- #GERD -On Omeprazole will hold as not hospital formulary. Will place patient on Protonix 40 mg IV daily #Hyperlipidemia -Hold Simvastatin 20 mg po at bedtime until passes swallow study VS,Fishbone, I+O VS, Fishbone, I+O Laboratory Tests 08/02/19 15:04 Red Blood Count 3.92 L, Mean Corpuscular Volume 95.7, Mean Corpuscular Hemoglobin 33.9 H, Mean Corpuscular Hemoglobin Concent 35.5, Red Cell Distribution Width 13.8, Neutrophils (%) (Auto) 73.8 H, Lymphocytes (%) (Auto) 21.2 L, Monocytes (%) (Auto) 4.0, Eosinophils (%) (Auto) 0.2, Basophils (%) (Auto) 0.3, Neutrophils # (Auto) 6.4, Lymphocytes # (Auto) 1.8, Monocytes # (Auto) 0.4, Eosinophils # (Auto) 0.0, Basophils # (Auto) 0.0 08/03/19 05:56 Red Blood Count 3.84 L, Mean Corpuscular Volume 92.2, Mean Corpuscular Hemoglobin 32.6, Mean Corpuscular Hemoglobin Concent 35.3, Red Cell Distribution Width 13.8, Calcium Level 8.7 L, Aspartate Amino Transf (AST/SGOT) 13, Alanine Aminotransferase (ALT/SGPT) 10 L, Alkaline Phosphatase 70, Total Bilirubin 1.1 H, Total Protein 6.1 L, Albumin 2.8 L Vital Signs Date Time Temp Pulse Resp B/P (MAP) Pulse Ox O2 Delivery O2 Flow Rate FiO2 08/03/19 08:53 82 126/68 08/03/19 06:00 96.7 20 96 08/02/19 23:30 Venturi Mask 15.0 40 I&O- Last 24 Hours up to 6 AM 08/03/19 06:00 Intake Total 650 ml Output Total 2 ml Balance 648 ml SAIDA FINNEGAN MD Aug 03, 2019 11:52
[2019-08-03] MEDS: PIPERACILLIN/TAZOBACTAM SOD 3.375 GM in D5W MINI-BAG PLUS 50 ML IV SCH ×2 (12:46→18:29)
[2019-08-03 14:00] VITALS: BP 117/56
[2019-08-03 20:00] VITALS: BP 114/48
[2019-08-03] MEDS: TAMSULOSIN 0.4 MG CAP PO SCH (21:00)
[2019-08-03 22:00] VITALS: BP 114/48
[2019-08-03] MEDS: DIVALPROEX SPRINKLE 125 MG CAP PO SCH (22:29)
[2019-08-04] MEDS: NS 1,000 ML IV SCH ×2 (00:23→14:18)
[2019-08-04] MEDS: PIPERACILLIN/TAZOBACTAM SOD 3.375 GM in D5W MINI-BAG PLUS 50 ML IV SCH ×2 (00:23→06:00)
[2019-08-04] MEDS: IPRATROPIUM 0.5MG/ALBUTEROL 2.5MG INH SOL UD 3ML (DUONEB)(J7620) NEB SCH ×4 (01:56→20:54)
[2019-08-04 06:00] VITALS: BP 112/51
[2019-08-04] MEDS: FLUTICASONE HFA 110 MCG 12 GM INHALER (FLOVENT) INH SCH ×2 (07:15→20:00)
[2019-08-04 08:30] VITALS: BP 102/62
[2019-08-04] MEDS: PANTOPRAZOLE 40MG INJ (PROTONIX) (C9113) IV SCH (10:15)
[2019-08-04 10:27] LABS: HEMATOCRIT 33.8 % (42.0-52.0); HEMOGLOBIN 11.6 g/dl (13.5-17.5); MEAN CORPUSCULAR HEMOGLOBIN 32.9 pg (27.0-33.0); MEAN CORPUSCULAR HGB CONC 34.3 g/dl (32.0-36.5); MEAN CORPUSCULAR VOLUME 95.8 fl (80.0-96.0); PLATELET COUNT, AUTOMATED 157 10^3/uL (150-450); RED BLOOD COUNT 3.53 10^6/uL (4.30-6.10); WHITE BLOOD COUNT 7.5 10^3/uL (4.0-10.0)
[2019-08-04] MEDS: POLYVINYL ALCOHOL OPHTH SOLN 15 ML(LIQUITEARS) OU SCH ×2 (10:35→22:27)
[2019-08-04] MEDS: FUROSEMIDE 40 MG/4 ML VIAL (J1940) IV SCH (10:35)
[2019-08-04 10:52] LABS: ALBUMIN 2.5 GM/DL (3.2-5.2); ALT/SGPT 8 U/L (12-78); BILIRUBIN,TOTAL 1.2 MG/DL (0.2-1.0); BLOOD UREA NITROGEN 10 MG/DL (7-18); CALCIUM LEVEL 8.4 MG/DL (8.8-10.2); CARBON DIOXIDE LEVEL 26 MEQ/L (21-32); CHLORIDE LEVEL 100 MEQ/L (98-107); CREATININE FOR GFR 0.52 MG/DL (0.70-1.30); GLOMERULAR FILTRATION RATE > 60.0 (>35); GLUCOSE, FASTING 95 MG/DL (70-100); POTASSIUM SERUM 3.1 MEQ/L (3.5-5.1); SODIUM LEVEL 133 MEQ/L (136-145); TOTAL PROTEIN 5.6 GM/DL (6.4-8.2)
[2019-08-04] MEDS: cefTRIAXone SOD 1 GM in D5W MINI-BAG PLUS 50 ML IV SCH (11:31)
--- NOTE | 2019-08-04 13:00 | IPNPDOC ---
Text Note Date of Service The patient was seen on 08/04/19. NOTE Subjective: Patient seen and examined at bedside. Son at bedside. Patient is non-verbal, unable to provide any information. Awake and alert however. Objective: General: lying comfortably in bed, elderly, frail, chronically ill appearing HEENT: NC/AT Lungs: diminished breath sounds Heart: +S1S2, RRR Abd: soft, NT, +BS Ext: no edema A/P: 89 yo male from [facility] brought by EMS for shortness of breath, with PMHx of pulmonary fibrosis, COPD/emphysema (Dr. Quach), hypertensive heart disease, CAD/HFpEF (Dr. Singer), repeated falls, anoxic brain syndrome, venous insufficiency/PAD (Dr. Nye), diabetes, hyperlipidemia, BPH, chronic knee pain, hypertension, orthostatic hypotension, epilepsy, and prostate CA. # Aspiration PNA - remote telemetry and pulse oximetry due to hypoxia - zosyn transitioned to ceftriaxone based on SCx/sensitivities -NPO (exception for sips of water to swallow Depakote sprinkles medication) Speech to conduct swallow study re-evaluation #acute hypoxic respiratory failure -DuoNeb nebulizer treatment q 6 hours as needed -weaned to 3L supplemental O2 #COPD with Emphysema-Chronic -Supplemental Oxygen 2-4 L as needed via N/C and may switch to Ventimask. Goal is to keep O2 saturation 88-92% -Continue Flovent inhaler 2 inhalations #Epilepsy-Chronic --Continue [facility] medications Depakote 125 mg po at bedtime (will switch over to sprinkles due to patient aspirating/dysphagia) -Depakote level with AM labs #Hypertension-Chronic #HFpEF - continue home meds - lasix 20 mg IV daily for now #CAD -Continue aspirin 81 mg daily by mouth once passes swallow study. #Epilepsy (anoxic brain syndrome).Chronic. Continue Depakote on 125 mg by mouth at bedtime. Will switch over to Depakote on 125 mg sprinkles at bedtime due to aspiration #Dementia with Behavioral Disturbances-Chronic- #GERD -On Omeprazole will hold as not hospital formulary. Will place patient on Protonix 40 mg IV daily #Hyperlipidemia -Hold Simvastatin 20 mg po at bedtime until passes swallow study VS,Fishbone, I+O VS, Fishbone, I+O Laboratory Tests 08/04/19 10:11 Red Blood Count 3.53 L, Mean Corpuscular Volume 95.8, Mean Corpuscular Hemoglobin 32.9, Mean Corpuscular Hemoglobin Concent 34.3, Red Cell Distribution Width 14.2, Calcium Level 8.4 L, Aspartate Amino Transf (AST/SGOT) 13, Alanine Aminotransferase (ALT/SGPT) 8 L, Alkaline Phosphatase 58, Total Bilirubin 1.2 H, Total Protein 5.6 L, Albumin 2.5 L Vital Signs Date Time Temp Pulse Resp B/P (MAP) Pulse Ox O2 Delivery O2 Flow Rate FiO2 08/04/19 08:30 3.0 08/04/19 08:30 97.9 67 17 102/62 (75) 92 08/02/19 23:30 Venturi Mask 40 I&O- Last 24 Hours up to 6 AM 08/04/19 06:00 Intake Total 1625 ml Output Total 0 ml Balance 1625 ml SAIDA FINNEGAN MD Aug 04, 2019 13:00
[2019-08-04 14:30] VITALS: BP 122/60
--- NOTE | 2019-08-04 20:25 | ECGEPIP ---
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
[2019-08-04] MEDS ORDERED: LORazepam 1 MG TAB PO PRN (20:30)
--- NOTE | 2019-08-04 20:39 | ECGEPIP ---
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
[2019-08-04] MEDS: DIVALPROEX SPRINKLE 125 MG CAP PO SCH (20:41)
[2019-08-04] MEDS: TAMSULOSIN 0.4 MG CAP PO SCH (21:00)
[2019-08-04 22:00] VITALS: BP 118/58
[2019-08-05] MEDS: NS 1,000 ML IV SCH ×3 (01:57→10:31)
[2019-08-05] MEDS: IPRATROPIUM 0.5MG/ALBUTEROL 2.5MG INH SOL UD 3ML (DUONEB)(J7620) NEB SCH ×4 (03:18→19:34)
[2019-08-05 06:00] VITALS: BP 117/60
[2019-08-05 06:54] LABS: BLOOD UREA NITROGEN 10 MG/DL (7-18); CALCIUM LEVEL 8.8 MG/DL (8.8-10.2); CARBON DIOXIDE LEVEL 24 MEQ/L (21-32); CHLORIDE LEVEL 101 MEQ/L (98-107); CREATININE FOR GFR 0.48 MG/DL (0.70-1.30); GLOMERULAR FILTRATION RATE > 60.0 (>35); GLUCOSE, FASTING 64 MG/DL (70-100); POTASSIUM SERUM 3.5 MEQ/L (3.5-5.1); SODIUM LEVEL 136 MEQ/L (136-145)
[2019-08-05] MEDS: FLUTICASONE HFA 110 MCG 12 GM INHALER (FLOVENT) INH SCH ×2 (07:02→19:34)
[2019-08-05 07:32] LABS: HEMOGLOBIN 12.4 g/dl (13.5-17.5); MEAN CORPUSCULAR HEMOGLOBIN 33.7 pg (27.0-33.0); MEAN CORPUSCULAR HGB CONC 34.4 g/dl (32.0-36.5); MEAN CORPUSCULAR VOLUME 97.8 fl (80.0-96.0); PLATELET COUNT, AUTOMATED 177 10^3/uL (150-450); RED BLOOD COUNT 3.68 10^6/uL (4.30-6.10); WHITE BLOOD COUNT 7.1 10^3/uL (4.0-10.0)
[2019-08-05 08:00] VITALS: BP 98/56
[2019-08-05] MEDS: FUROSEMIDE 40 MG/4 ML VIAL (J1940) IV SCH (08:59)
[2019-08-05 09:20] VITALS: BP 102/50
[2019-08-05] MEDS: PANTOPRAZOLE 40MG INJ (PROTONIX) (C9113) IV SCH (09:33)
[2019-08-05] MEDS: cefTRIAXone SOD 1 GM in D5W MINI-BAG PLUS 50 ML IV SCH (10:32)
[2019-08-05] MEDS: POLYVINYL ALCOHOL OPHTH SOLN 15 ML(LIQUITEARS) OU SCH ×2 (10:38→21:41)
[2019-08-05] MEDS ORDERED: VARIBAR PUDDING 40% w/v 230ML TUBE As Ordered ONE (11:00)
[2019-08-05] MEDS ORDERED: VARIBAR NECTAR 40% w/v 240ML SUSP BTL As Ordered ONE (11:00)
[2019-08-05] MEDS ORDERED: E-Z-PAQUE 96% w/w SUSP 176GM BTL As Ordered ONE (11:01)
[2019-08-05] MEDS ORDERED: BARIUM SULFATE 700 MG TABLET (E-Z-DISK) As Ordered ONE (11:01)
--- NOTE | 2019-08-05 11:32 | IPNPDOC ---
Text Note Date of Service The patient was seen on 08/05/19. NOTE Subjective: Patient seen and examined at bedside. Appears better today. Patient is non- verbal, unable to provide any information. Awake and alert however. Objective: General: lying comfortably in bed, elderly, frail, chronically ill appearing HEENT: NC/AT Lungs: diminished breath sounds Heart: +S1S2, RRR Abd: soft, NT, +BS Ext: no edema A/P: 89 yo male from [facility] brought by EMS for shortness of breath, with PMHx of pulmonary fibrosis, COPD/emphysema (Dr. Quach), hypertensive heart disease, CAD/HFpEF (Dr. Singer), repeated falls, anoxic brain syndrome, venous insufficiency/PAD (Dr. Nye), diabetes, hyperlipidemia, BPH, chronic knee pain, hypertension, orthostatic hypotension, epilepsy, and prostate CA. # Aspiration PNA - remote telemetry and pulse oximetry due to hypoxia - zosyn transitioned to ceftriaxone based on SCx/sensitivities - NPO (exception for sips of water to swallow Depakote sprinkles medication) - pending barium swallow today #acute hypoxic respiratory failure -DuoNeb nebulizer treatment q 6 hours as needed -weaned to 3L supplemental O2 - 100% - could probably wean further #COPD with Emphysema -Continue Flovent and supplemental oxygen #Epilepsy --Continue long term medications Depakote 125 mg po at bedtime (will switch over to sprinkles due to patient aspirating/dysphagia) -Depakote level with AM labs #HTN - meds on hold however BP is WNL #HFpEF - continue home meds - lasix 20 mg IV daily for now #CAD -Continue aspirin 81 mg daily by mouth once passes swallow study. #Epilepsy (anoxic brain syndrome).Chronic. Continue Depakote on 125 mg by mouth at bedtime. Will switch over to Depakote on 125 mg sprinkles at bedtime due to aspiration #Dementia with Behavioral Disturbances-Chronic- #GERD -On Omeprazole will hold as not hospital formulary. Will place patient on Protonix 40 mg IV daily #Hyperlipidemia -Hold Simvastatin 20 mg po at bedtime until passes swallow study Dispo: barium swallow today, IV antibiotics VS,Fishbone, I+O VS, Fishbone, I+O Laboratory Tests 08/05/19 05:25 Calcium Level 8.8 08/05/19 06:58 Red Blood Count 3.68 L, Mean Corpuscular Volume 97.8 H, Mean Corpuscular Hemoglobin 33.7 H, Mean Corpuscular Hemoglobin Concent 34.4, Red Cell Distribution Width 14.0 Vital Signs Date Time Temp Pulse Resp B/P (MAP) Pulse Ox O2 Delivery O2 Flow Rate FiO2 08/05/19 09:20 96.3 84 18 102/50 (67) 100 3.0 08/04/19 20:56 Nasal Cannula 08/02/19 23:30 40 I&O- Last 24 Hours up to 6 AM 08/05/19 06:00 Intake Total 2069 ml Balance 2069 ml SAIDA FINNEGAN MD Aug 05, 2019 11:32
[2019-08-05 14:00] VITALS: BP 124/60
[2019-08-05 14:26] VITALS: BP 124/70
--- NOTE | 2019-08-05 16:29 | REP ---
COOKIE SWALLOW The procedure was performed under the direct supervision of Dr. Pineda. The procedure was performed with Ana Sheriff from speech pathology present. 5 ml aliquots of honey and pudding consistency barium was administered. There is no evidence of penetration or aspiration. A detailed report of this examination will be provided by speech pathology. 2.5 minutes of fluoroscopy time was utilized for this procedure. Reviewed by CHIDI Pepe 08/05/2019 03:43 P Electronically Signed by Cedrick Pineda MD 08/05/2019 04:19 P
[2019-08-05 19:00] VITALS: BP 142/83
[2019-08-05] MEDS: TAMSULOSIN 0.4 MG CAP PO SCH (21:41)
[2019-08-05] MEDS: DIVALPROEX SPRINKLE 125 MG CAP PO SCH (21:42)
[2019-08-06] MEDS: NS 1,000 ML IV SCH (00:21)
[2019-08-06] MEDS: IPRATROPIUM 0.5MG/ALBUTEROL 2.5MG INH SOL UD 3ML (DUONEB)(J7620) NEB SCH ×4 (02:54→18:25)
[2019-08-06 06:30] VITALS: BP 111/73
[2019-08-06 06:31] VITALS: BP 111/73
[2019-08-06 06:35] LABS: HEMATOCRIT 36.7 % (42.0-52.0); HEMOGLOBIN 12.6 g/dl (13.5-17.5); MEAN CORPUSCULAR HEMOGLOBIN 32.4 pg (27.0-33.0); MEAN CORPUSCULAR HGB CONC 34.3 g/dl (32.0-36.5); MEAN CORPUSCULAR VOLUME 94.3 fl (80.0-96.0); PLATELET COUNT, AUTOMATED 191 10^3/uL (150-450); RED BLOOD COUNT 3.89 10^6/uL (4.30-6.10); WHITE BLOOD COUNT 6.5 10^3/uL (4.0-10.0)
[2019-08-06 06:56] LABS: BLOOD UREA NITROGEN 9 MG/DL (7-18); CALCIUM LEVEL 8.9 MG/DL (8.8-10.2); CARBON DIOXIDE LEVEL 26 MEQ/L (21-32); CHLORIDE LEVEL 102 MEQ/L (98-107); CREATININE FOR GFR 0.49 MG/DL (0.70-1.30); GLOMERULAR FILTRATION RATE > 60.0 (>35); GLUCOSE, FASTING 91 MG/DL (70-100); SODIUM LEVEL 136 MEQ/L (136-145)
[2019-08-06] MEDS: FLUTICASONE HFA 110 MCG 12 GM INHALER (FLOVENT) INH SCH ×2 (07:37→18:25)
[2019-08-06] MEDS ORDERED: POTASSIUM CHLORIDE 10% LIQ 20 MEQ/15 ML UDC PO ONE (08:00)
--- NOTE | 2019-08-06 08:03 | ECHO ---
DATE OF PROCEDURE: 08/04/2019 REFERRING PHYSICIAN: Dr. Mckeon INDICATION: Cardiac dysrhythmia. HEIGHT: 168 cm WEIGHT: 54 kg DIMENSIONS: IVS: 1.3 LV: 4.4 LVPW: 1.2 LA: 4.0 Aorta: 3.6 Mitral E wave velocity: 128 E prime septal: 8.8 E prime lateral: 9.0 FINDINGS: The study is of poor technical quality. Apparently, the patient was completely uncooperative with the examination. Underlying rhythm is probably atrial fibrillation with rather wide fluctuation of heart rate. Left ventricle is normal size. Overall LV systolic function is probably normal based on very limited views. I do not appreciate any definite segmental wall motion abnormalities. Right ventricle was poorly seen, but grossly appears normal. Both atria are at least mildly enlarged. Aortic valve is heavily sclerotic and there is some restriction of cusp mobility. It is tricuspid though. There are very prominent degenerative abnormalities of mitral valve with mitral annular calcifications and thickening of mitral leaflets. Mobility is preserved. Tricuspid valve appears normal. Limited views of pulmonic valve also appear normal. There is prominent fat pad and trivial effusion. Inferior vena cava was not seen. Aortic root appears normal. Aortic arch and abdominal aorta were not visualized. Doppler interrogation of aortic valve reveals mild insufficiency and mild stenosis. Mean gradient across the aortic valve was 11 mmHg. There is approximately aiwz-te-nifavpax mitral insufficiency. Trace tricuspid insufficiency is seen. Calculated pulmonary artery pressure is in the 30s, assuming normal central venous pressure. Mild pulmonic insufficiency is noted. Evaluation of diastolic function is inconclusive due to underlying irregular heart rate, but tissue Doppler velocities are relatively preserved and consequently I do not believe there is advanced diastolic dysfunction. CONCLUSIONS: 1. Study is of fair technical quality. 2. Normal LV size with probably normal LV systolic function. 3. Prominent degenerative abnormalities of aortic valve resulting in mild stenosis and mild insufficiency. 4. Bokg-yf-zvnwpxql mitral insufficiency. 5. Unable to estimate central venous pressure, but at least mild pulmonary hypertension. COMMENT: Subacute bacterial endocarditis (SBE) prophylaxis is not recommended.
[2019-08-06] MEDS: PANTOPRAZOLE 40MG INJ (PROTONIX) (C9113) IV SCH (08:31)
[2019-08-06] MEDS: POLYVINYL ALCOHOL OPHTH SOLN 15 ML(LIQUITEARS) OU SCH ×2 (08:31→20:35)
[2019-08-06] MEDS: FUROSEMIDE 40 MG/4 ML VIAL (J1940) IV SCH (08:32)
[2019-08-06] MEDS: cefTRIAXone SOD 1 GM in D5W MINI-BAG PLUS 50 ML IV SCH (09:39)
--- NOTE | 2019-08-06 11:24 | IPNPDOC ---
Text Note Date of Service The patient was seen on 08/06/19. NOTE Subjective: Patient seen and examined at bedside. Continues to feel better. He was able to answer "I'm good " when asked how is feeling. Objective: General: sitting comfortably in chair, being fed breakfast HEENT: NC/AT Lungs: diminished breath sounds Heart: +S1S2, RRR Abd: soft, NT, +BS Ext: no edema A/P: 89 yo male from [facility] brought by EMS for shortness of breath, with PMHx of pulmonary fibrosis, COPD/emphysema (Dr. Quach), hypertensive heart disease, CAD/HFpEF (Dr. Singer), repeated falls, anoxic brain syndrome, venous insufficiency/PAD (Dr. Nye), diabetes, hyperlipidemia, BPH, chronic knee pain, hypertension, orthostatic hypotension, epilepsy, and prostate CA. # Aspiration PNA - continue ceftriaxone based on SCx/sensitivities - as per ST recs - pureed diet/honey thick liquids #acute hypoxic respiratory failure -DuoNeb nebulizer treatment q 6 hours as needed - continue to wean O2 #COPD with Emphysema -Continue Flovent and supplemental oxygen as needed #Epilepsy --Continue care home medications Depakote 125 mg po at bedtime #HTN - meds on hold however BP is WNL #HFpEF - continue home meds - lasix 20 mg IV daily for now #CAD -Continue aspirin 81 mg daily by mouth #Epilepsy (anoxic brain syndrome) Continue Depakote on 125 mg by mouth at bedtime. #Dementia with Behavioral Disturbances #GERD -protonix #Hyperlipidemia - Simvastatin 20 mg po at bedtime Dispo: IV antibiotics, anticipate d/c back to [facility] 08/09/19 VS,Vaibhav, I+O VS, Vaibhav, I+O Laboratory Tests 08/06/19 05:42 Red Blood Count 3.89 L, Mean Corpuscular Volume 94.3, Mean Corpuscular Hemoglobin 32.4, Mean Corpuscular Hemoglobin Concent 34.3, Red Cell Distribution Width 13.8, Calcium Level 8.9 Vital Signs Date Time Temp Pulse Resp B/P (MAP) Pulse Ox O2 Delivery O2 Flow Rate FiO2 08/06/19 09:00 0.0 08/06/19 06:31 96.8 72 20 111/73 (86) 98 08/04/19 20:56 Nasal Cannula 08/02/19 23:30 40 I&O- Last 24 Hours up to 6 AM 08/06/19 05:59 Intake Total 925 ml Output Total 0 ml Balance 925 ml SAIDA FINNEGAN MD Aug 06, 2019 11:24
[2019-08-06 14:47] VITALS: BP 158/91
[2019-08-06] MEDS: DIVALPROEX SPRINKLE 125 MG CAP PO SCH (20:35)
[2019-08-06] MEDS: TAMSULOSIN 0.4 MG CAP PO SCH (20:35)
[2019-08-06 22:00] VITALS: BP 152/91
[2019-08-07] MEDS: IPRATROPIUM 0.5MG/ALBUTEROL 2.5MG INH SOL UD 3ML (DUONEB)(J7620) NEB SCH ×4 (01:25→18:56)
[2019-08-07 03:02] LABS: APPEARANCE, URINE CLEAR (CLEAR); BACTERIA, URINE AUTO NEGATIVE (NEGATIVE); BILIRUBIN, URINE AUTO NEGATIVE (NEGATIVE); BLOOD, URINE BLOOD 3+ (NEGATIVE); COLOR, URINE YELLOW (YELLOW); GLUCOSE, URINE (UA) AUTO NEGATIVE (NEGATIVE); KETONE, URINE AUTO 1+ mg/dL (NEGATIVE); LEUKOCYTE ESTERASE, URINE AUTO NEGATIVE (NEGATIVE); MUCUS, URINE SMALL (NEGATIVE); NITRITE, URINE AUTO NEGATIVE (NEGATIVE); PROTEIN, URINE AUTO NEGATIVE (NEGATIVE); RBC, URINE AUTO TNTC /HPF (0-3); SQUAMOUS EPITHELIAL CELL UR AU 0 /HPF (0-6); UROBILINOGEN, URINE AUTO 0.2 mg/dL (0.0-2.0); WBC, URINE AUTO 0 /HPF (0-3)
[2019-08-07 05:55] LABS: HEMATOCRIT 38.5 % (42.0-52.0); HEMOGLOBIN 13.4 g/dl (13.5-17.5); MEAN CORPUSCULAR HEMOGLOBIN 33.4 pg (27.0-33.0); MEAN CORPUSCULAR HGB CONC 34.8 g/dl (32.0-36.5); PLATELET COUNT, AUTOMATED 186 10^3/uL (150-450); RED BLOOD COUNT 4.01 10^6/uL (4.30-6.10); WHITE BLOOD COUNT 6.5 10^3/uL (4.0-10.0)
[2019-08-07 06:00] VITALS: BP 118/73
[2019-08-07 06:22] LABS: BLOOD UREA NITROGEN 13 MG/DL (7-18); CALCIUM LEVEL 9.5 MG/DL (8.8-10.2); CARBON DIOXIDE LEVEL 29 MEQ/L (21-32); CHLORIDE LEVEL 103 MEQ/L (98-107); CREATININE FOR GFR 0.52 MG/DL (0.70-1.30); GLOMERULAR FILTRATION RATE > 60.0 (>35); GLUCOSE, FASTING 113 MG/DL (70-100); POTASSIUM SERUM 3.3 MEQ/L (3.5-5.1); SODIUM LEVEL 137 MEQ/L (136-145)
[2019-08-07] MEDS: FLUTICASONE HFA 110 MCG 12 GM INHALER (FLOVENT) INH SCH ×2 (07:17→18:56)
[2019-08-07] MEDS ORDERED: POTASSIUM CHLORIDE 10% LIQ 20 MEQ/15 ML UDC PO ONE (07:45)
[2019-08-07 08:06] LABS: MAGNESIUM LEVEL 2.1 MG/DL (1.8-2.4)
[2019-08-07] MEDS: cefTRIAXone SOD 1 GM in D5W MINI-BAG PLUS 50 ML IV SCH (09:38)
[2019-08-07] MEDS: PANTOPRAZOLE 40MG INJ (PROTONIX) (C9113) IV SCH (09:39)
[2019-08-07] MEDS: POLYVINYL ALCOHOL OPHTH SOLN 15 ML(LIQUITEARS) OU SCH ×2 (09:39→22:00)
[2019-08-07] MEDS: FUROSEMIDE 40 MG/4 ML VIAL (J1940) IV SCH (09:39)
--- NOTE | 2019-08-07 10:11 | IPNPDOC ---
Text Note Date of Service The patient was seen on 08/07/19. NOTE Subjective: Patient seen and examined at bedside. No acute overnight events reported. He was able to nod yes or no, and follow some very simple commands. Objective: General: lying comfortably in bed HEENT: NC/AT Lungs: diminished breath sounds Heart: +S1S2, RRR Abd: soft, NT, +BS Ext: no edema A/P: 89 yo male from [facility] brought by EMS for shortness of breath, with PMHx of pulmo nary fibrosis, COPD/emphysema (Dr. Quach), hypertensive heart disease, CAD/HFpEF (Dr. Singer), repeated falls, anoxic brain syndrome, venous insufficiency/PAD (Dr. Nye), diabetes, hyperlipidemia, BPH, chronic knee pain, hypertension, orthostatic hypotension, epilepsy, and prostate CA. # Aspiration PNA - continue ceftriaxone based on SCx/sensitivities - as per ST recs - pureed diet/honey thick liquids #acute hypoxic respiratory failure -DuoNeb nebulizer treatment q 6 hours as needed - continue to wean O2 #COPD with Emphysema -Continue Flovent and supplemental oxygen as needed #Epilepsy --Continue halfway medications Depakote 125 mg po at bedtime #HTN - meds on hold however BP is WNL #HFpEF - continue home meds #CAD -Continue aspirin 81 mg daily by mouth #Epilepsy (anoxic brain syndrome) Continue Depakote on 125 mg by mouth at bedtime. #Dementia with Behavioral Disturbances #GERD -protonix #Hyperlipidemia - Simvastatin 20 mg po at bedtime Dispo: IV antibiotics, anticipate d/c back to [facility] 08/09/19 VSVaibhav, I+O VS, Vaibhav, I+O Laboratory Tests 08/07/19 05:27 Red Blood Count 4.01 L, Mean Corpuscular Volume 96.0, Mean Corpuscular Hemoglobin 33.4 H, Mean Corpuscular Hemoglobin Concent 34.8, Red Cell Distribution Width 14.1, Calcium Level 9.5 Vital Signs Date Time Temp Pulse Resp B/P (MAP) Pulse Ox O2 Delivery O2 Flow Rate FiO2 08/07/19 06:00 97.3 90 18 118/73 (88) 98 08/06/19 21:00 3.0 08/04/19 20:56 Nasal Cannula 08/02/19 23:30 40 I&O- Last 24 Hours up to 6 AM 08/07/19 06:00 Intake Total 220 ml Output Total 1950 ml Balance -1730 ml SAIDA FINNEGAN MD Aug 07, 2019 10:11
[2019-08-07 14:00] VITALS: BP 119/71
[2019-08-07] MEDS: TAMSULOSIN 0.4 MG CAP PO SCH (21:00)
[2019-08-07 22:00] VITALS: BP 116/68
[2019-08-07] MEDS: DIVALPROEX SPRINKLE 125 MG CAP PO SCH (22:00)
[2019-08-08] MEDS: IPRATROPIUM 0.5MG/ALBUTEROL 2.5MG INH SOL UD 3ML (DUONEB)(J7620) NEB SCH ×4 (01:11→19:45)
[2019-08-08 06:00] VITALS: BP 111/56
[2019-08-08 06:19] LABS: HEMATOCRIT 39.4 % (42.0-52.0); HEMOGLOBIN 13.4 g/dl (13.5-17.5); MEAN CORPUSCULAR HEMOGLOBIN 33.2 pg (27.0-33.0); MEAN CORPUSCULAR VOLUME 97.5 fl (80.0-96.0); PLATELET COUNT, AUTOMATED 185 10^3/uL (150-450); RED BLOOD COUNT 4.04 10^6/uL (4.30-6.10); WHITE BLOOD COUNT 6.6 10^3/uL (4.0-10.0)
[2019-08-08 06:48] LABS: BLOOD UREA NITROGEN 17 MG/DL (7-18); CALCIUM LEVEL 9.2 MG/DL (8.8-10.2); CARBON DIOXIDE LEVEL 29 MEQ/L (21-32); CHLORIDE LEVEL 104 MEQ/L (98-107); CREATININE FOR GFR 0.61 MG/DL (0.70-1.30); GLOMERULAR FILTRATION RATE > 60.0 (>35); GLUCOSE, FASTING 96 MG/DL (70-100); POTASSIUM SERUM 3.1 MEQ/L (3.5-5.1); SODIUM LEVEL 140 MEQ/L (136-145)
[2019-08-08] MEDS: FLUTICASONE HFA 110 MCG 12 GM INHALER (FLOVENT) INH SCH ×2 (07:18→19:45)
[2019-08-08 08:25] LABS: NT-PRO BNP 4595 PG/ML (<450)
[2019-08-08] MEDS: POLYVINYL ALCOHOL OPHTH SOLN 15 ML(LIQUITEARS) OU SCH ×2 (09:40→20:52)
[2019-08-08] MEDS: OMEPRAZOLE 20 MG CAP PO SCH (09:40)
[2019-08-08] MEDS: cefTRIAXone SOD 1 GM in D5W MINI-BAG PLUS 50 ML IV SCH (09:41)
[2019-08-08] MEDS: FUROSEMIDE 40 MG TAB PO SCH (10:00)
[2019-08-08] MEDS ORDERED: POTASSIUM CHLORIDE 10% LIQ 20 MEQ/15 ML UDC PO ONE (13:00)
--- NOTE | 2019-08-08 13:07 | CR.PDOC ---
General Date of Consultation: Aug 08, 2019 Consultation REASON FOR CONSULTATION/CHIEF COMPLAINT: Urinary retention HISTORY OF PRESENT ILLNESS: 89-year-old male who is admitted for aspiration pneumonia. Patient resides in a intermediate facility. Patient has a history of senile dementia and is nonverbal. Patient is unable to provide any history. Patient was found to have urinary retention with bladder residuals between 450 and 500 mL. The nursing staff had been performing intermittent catheterization. The nurses are unable to pass the catheter today and bladder scan reports a residual of 460 mL. Patient does not appear to be in discomfort. Patient has a history of prostate carcinoma and is status post radiation therapy. Patient is currently on Flomax 0.8 mg daily. BUN/creatinine are normal. ALLERGIES: Please see below. HOME MEDICATIONS: Please see below. PAST MEDICAL HISTORY: 1. Dementia. 2. COPD. 3. Coronary artery disease 4. Hypertension 5. History of CVA PAST SURGICAL HISTORY: 1. Inguinal herniorrhaphy 2. Carotid endarterectomy 3. Peripheral vascular surgery REVIEW OF SYSTEMS: Unable to obtain PHYSICAL EXAMINATION: VITAL SIGNS: Please see below. GENERAL APPEARANCE: Elderly contracted male lying comfortably on a stretcher. RESPIRATORY: No respiratory distress. CARDIOVASCULAR: No peripheral edema. ABDOMEN: Soft nontender with no bladder distention. Radiation tattoo present in the suprapubic skin. : Penis uncircumcised, meatus normal. Testes unremarkable EXTREMITIES: Contracted. NEUROLOGICAL: Nonverbal. Attempts to pass an 18 Thai coud catheter were unsuccessful. A urethral stricture could be felt in the bulbous urethra. A 14 Thai Mc catheter was then inserted and placed to gravity drainage. Clear urine was drained. LABORATORY DATA: Please see below. ASSESSMENT/PLAN: 1. Urinary retention. Maintain Mc catheter until medically stable. Patient is currently taking Flomax 0.8 mg daily. A voiding trial can be considered once patient is back to his baseline status. Vital Signs/I&O Vital Signs Date Time Temp Pulse Resp B/P (MAP) Pulse Ox O2 Delivery O2 Flow Rate FiO2 08/08/19 06:00 97.8 80 18 111/56 (74) 95 08/07/19 14:00 1.0 08/04/19 20:56 Nasal Cannula 08/02/19 23:30 40 I&O- Last 24 Hours up to 6 AM 08/08/19 06:00 Intake Total 25 ml Output Total 500 ml Balance -475 ml Laboratory Data Labs 24H Laboratory Tests 2 08/08/19 05:49: Nucleated Red Blood Cells % (auto) 0.0, Anion Gap 7L, Glomerular Filtration Rate > 60.0, Blood Urea Nitrogen 17, Creatinine 0.61L, Sodium Level 140, Potassium Level 3.1L, Chloride Level 104, Carbon Dioxide Level 29, Calcium Level 9.2, Magnesium Level 2.0, DU-Ebn-Y-Type Natriuretic Peptide 4595H CBC/BMP Laboratory Tests 08/08/19 05:49 Red Blood Count 4.04 L, Mean Corpuscular Volume 97.5 H, Mean Corpuscular Hemoglobin 33.2 H, Mean Corpuscular Hemoglobin Concent 34.0, Red Cell Distribution Width 14.2, Calcium Level 9.2 Microbiology Microbiology 08/02/19 Blood Culture - Final, Complete NO GROWTH AFTER 5 DAYS 08/02/19 Blood Culture - Final, Complete NO GROWTH AFTER 5 DAYS 08/02/19 Blood Culture - Final, Complete NO GROWTH AFTER 5 DAYS 08/02/19 Blood Culture - Final, Complete NO GROWTH AFTER 5 DAYS 08/04/19 Respiratory Virus Panel (PCR) ([facility]) - Final, Complete 08/02/19 Gram Stain - Final, Complete 08/02/19 Sputum Culture - Final, Complete Raoultella Ornithinolytica 08/06/19 Urine Culture, Received Pending Allergies Coded Allergies: No Known Allergies (Verified , 03/08/05) Home Medications Scheduled Acetaminophen (Acetaminophen) 500 Mg Tablet, 500 MG PO TID, (Reported) Amlodipine Besylate (Amlodipine Besylate) 5 Mg Tablet, 5 MG PO DAILY, (Reported) Aspirin (Aspirin) 81 Mg Tab.chew, 81 MG PO DAILY, (Reported) Cyanocobalamin (Vitamin B-12) (B-12) 1,000 Mcg Tablet, 1,000 MCG PO DAILY, (Reported) Divalproex Sodium (Depakote) 125 Mg Tablet.dr, 125 MG PO QHS, (Reported) Ferrous Sulfate (Ferrous Sulfate) 220 Mg/5 Ml Solution, 7.5 ML PO DAILY, (Reported) Fluticasone Propionate (Flovent Hfa) 110 Mcg/Act Aer.w.adap, 2 PUFF INH BID, (Reported) Furosemide (Lasix) 40 Mg Tablet, 40 MG PO DAILY, (Reported) Omeprazole (Omeprazole) 10 Mg Capsule.dr, 10 MG PO DAILY, (Reported) Propylene Glycol/Peg 400/Pf (Systane 0.3-0.4% Eye Drop) 1 Each Droperette, 1 DRP OU BID, (Reported) Simvastatin (Simvastatin) 20 Mg Tablet, 20 MG PO QHS, (Reported) Tamsulosin HCl (Flomax) 0.4 Mg Capsule, 0.8 MG PO QHS, (Reported) Scheduled PRN Acetaminophen (Tylenol) 325 Mg Tablet, 650 MG PO Q4H PRN for PAIN, (Reported) Albuterol Sulfate (Albuterol Sulfate) 0.63 Mg/3 Ml Vial.neb, 0.63 MG INH Q6H PRN for SOB/WHEEZING, (Reported) Bisacodyl (Dulcolax) 10 Mg Supp.rect, 10 MG AL DAILY PRN for CONSTIPATION, (Reported) Milk Of Magnesia (Milk of Magnesia) 2,400 Mg/10 Ml Oral.susp, 10 ML PO DAILY PRN for CONSTIPATION, (Reported) Sodium Phosphate,[place]-Dibasic (Enema) 133 Ml Enema, 1 JERARDO AL DAILY PRN for CONSTIPATION, (Reported) Rodrigo Begum MD Aug 08, 2019 13:07
[2019-08-08 14:00] VITALS: BP 113/59
--- NOTE | 2019-08-08 14:24 | REP ---
Clinical: Urinary retention. Technique: Axial noncontrast images from the lung bases to the pubic symphysis with coronal and sagittal re-formations. Findings: Lung bases demonstrate chronic fibrosis. Liver, spleen, pancreas, gallbladder, bilateral adrenal glands are relatively normal for noncontrast evaluation. Right kidney demonstrates 2 mm nonobstructing calculus. Left kidney includes 6.5 cm exophytic hypodensity likely cyst and findings to suggest an extrarenal pelvis versus hydronephrosis. The enteric system demonstrates diffuse fecal stasis and constipation without obstruction. Fecal impaction at the rectum requires clinical correlation distended to 8.3 cm transverse diameter. A Mc catheter is identified within the distended bladder. Prostate gland is enlarged and measures approximately 6.5 cm transverse length with mass effect on the base of the bladder noted. Infrarenal abdominal aortic aneurysm is identified measuring approximately 5 cm maximal AP diameter. Extensive atherosclerotic disease noted bilateral femoral artery grafts noted. No ascites. No free air. No obvious adenopathy. Musculoskeletal structures demonstrate osteopenia and degenerative changes. Impression: 1. Mc catheter in distended bladder with enlarged prostate gland having mass effect on the base of the bladder. 2. Left kidney includes 6.5 cm presumed cyst and extrarenal pelvis versus hydronephrosis without hydroureter. 3. Infrarenal abdominal aortic aneurysm 5 cm maximal diameter. 4. Further chronic changes as described above. 5. No ascites. No free air. No adenopathy. Electronically Signed by Rick Mathis MD 08/08/2019 02:15 P
[2019-08-08] MEDS: TAMSULOSIN 0.4 MG CAP PO SCH (20:51)
[2019-08-08] MEDS: DIVALPROEX SPRINKLE 125 MG CAP PO SCH (20:51)
[2019-08-09] MEDS: IPRATROPIUM 0.5MG/ALBUTEROL 2.5MG INH SOL UD 3ML (DUONEB)(J7620) NEB SCH ×2 (02:00→08:57)
[2019-08-09 06:00] VITALS: BP 109/62
[2019-08-09 06:01] LABS: HEMATOCRIT 42.9 % (42.0-52.0); HEMOGLOBIN 14.2 g/dl (13.5-17.5); MEAN CORPUSCULAR HEMOGLOBIN 32.3 pg (27.0-33.0); MEAN CORPUSCULAR HGB CONC 33.1 g/dl (32.0-36.5); MEAN CORPUSCULAR VOLUME 97.7 fl (80.0-96.0); PLATELET COUNT, AUTOMATED 219 10^3/uL (150-450); RED BLOOD COUNT 4.39 10^6/uL (4.30-6.10); WHITE BLOOD COUNT 8.4 10^3/uL (4.0-10.0)
[2019-08-09 06:22] LABS: BLOOD UREA NITROGEN 18 MG/DL (7-18); CARBON DIOXIDE LEVEL 33 MEQ/L (21-32); CHLORIDE LEVEL 103 MEQ/L (98-107); GLOMERULAR FILTRATION RATE > 60.0 (>35); GLUCOSE, FASTING 103 MG/DL (70-100); POTASSIUM SERUM 3.7 MEQ/L (3.5-5.1); SODIUM LEVEL 143 MEQ/L (136-145)
[2019-08-09] MEDS: FLUTICASONE HFA 110 MCG 12 GM INHALER (FLOVENT) INH SCH (07:23)
[2019-08-09] MEDS: FUROSEMIDE 40 MG TAB PO SCH (08:10)
[2019-08-09] MEDS: OMEPRAZOLE 20 MG CAP PO SCH (08:10)
[2019-08-09] MEDS: POLYVINYL ALCOHOL OPHTH SOLN 15 ML(LIQUITEARS) OU SCH (08:10)
[2019-08-09] MEDS: cefTRIAXone SOD 1 GM in D5W MINI-BAG PLUS 50 ML IV SCH (09:37)
--- NOTE | 2019-08-09 12:31 | IPNPDOC ---
Text Note Date of Service The patient was seen on 08/08/19. NOTE Subjective: Patient seen and examined at bedside. No acute overnight events reported. He was able to nod yes or no, and follow some very simple commands. Objective: General: lying comfortably in bed HEENT: NC/AT Lungs: diminished breath sounds Heart: +S1S2, RRR Abd: soft, NT, +BS Ext: no edema A/P: 89 yo male from [facility] brought by EMS for shortness of breath, with PMHx of pulmo nary fibrosis, COPD/emphysema (Dr. Quach), hypertensive heart disease, CAD/HFpEF (Dr. Singer), repeated falls, anoxic brain syndrome, venous insufficiency/PAD (Dr. Nye), diabetes, hyperlipidemia, BPH, chronic knee pain, hypertension, orthostatic hypotension, epilepsy, and prostate CA. # Aspiration PNA - continue ceftriaxone based on SCx/sensitivities - as per ST recs - pureed diet/honey thick liquids #acute hypoxic respiratory failure -DuoNeb nebulizer treatment q 6 hours as needed - continue to wean O2 #COPD with Emphysema -Continue Flovent and supplemental oxygen as needed #Epilepsy --Continue usp medications Depakote 125 mg po at bedtime #HTN - meds on hold however BP is WNL #HFpEF - continue home meds #CAD -Continue aspirin 81 mg daily by mouth #Epilepsy (anoxic brain syndrome) Continue Depakote on 125 mg by mouth at bedtime. #Dementia with Behavioral Disturbances #GERD -protonix #Hyperlipidemia - Simvastatin 20 mg po at bedtime Dispo: IV antibiotics, anticipate d/c back to [facility] 08/09/19 VSVaibhav, I+O VS, Vaibhav, I+O Laboratory Tests 08/09/19 05:31 Red Blood Count 4.39, Mean Corpuscular Volume 97.7 H, Mean Corpuscular Hemoglobin 32.3, Mean Corpuscular Hemoglobin Concent 33.1, Red Cell Distribution Width 14.3, Calcium Level 10.0 Vital Signs Date Time Temp Pulse Resp B/P (MAP) Pulse Ox O2 Delivery O2 Flow Rate FiO2 08/09/19 06:00 96.0 87 18 109/62 (78) 93 08/07/19 14:00 1.0 08/04/19 20:56 Nasal Cannula I&O- Last 24 Hours up to 6 AM 08/09/19 06:00 Intake Total 480 ml Output Total 1225 ml Balance -745 ml SAIDA FINNEGAN MD Aug 09, 2019 12:31
--- NOTE | 2019-08-09 12:37 | DS.PDOC ---
Discharge Summary General Date of Admission Aug 03, 2019 at 11:53 Date of Discharge 08/09/19 Specialist/Consultants Involve: Rodrigo Begum MD Discharge Summary PROCEDURES PERFORMED DURING STAY: corrales insertion by urology DISCHARGE DIAGNOSES: # Aspiration PNA #acute hypoxic respiratory failure #COPD with Emphysema #HTN #HFpEF #CAD #Epilepsy (anoxic brain syndrome) #Dementia with Behavioral Disturbances #prostate CA #GERD #Hyperlipidemia #urinary retention COMPLICATIONS/CHIEF COMPLAINT: Aspiration Into Airway. Hospital Course: 89-year-old male brought into the ED by EMS from [facility] due to patient choking on his food during lunch, and marked shortness of breath. Admitted for further evaluation and treatment for aspiration pneumonia. Respond ed well to antibiotic therapy, successfully weaned off supplemental oxygen. Initially patient was very lethargic, and failed swallow evaluation. Repeat swallow evaluation after few days of antiobiotics, patient performed much better, with modified diet recs for pureed diet with honey thickened liquids. Hospital stay further complicated with urinary retention, requiring corrales catheter insertion. DISCHARGE MEDICATIONS: Please see below. ALLERGIES: Please see below. PHYSICAL EXAMINATION ON DISCHARGE: VITAL SIGNS: Please see below. General: lying comfortably in bed HEENT: NC/AT Lungs: diminished breath sounds Heart: +S1S2, RRR Abd: soft, NT, +BS Ext: no edema LABORATORY DATA: Please see below. PROGNOSIS: poor ACTIVITY: [As tolerated]. DIET: pureed, honey thick liquids DISPOSITION: [facility]. DISCHARGE INSTRUCTIONS: 1. Follow up PCP in 3-5 days/ 2. Follow up urology in 7-10 days. DISCHARGE CONDITION: [Stable]. TIME SPENT ON DISCHARGE: 40 minutes. Vital Signs/I&Os Vital Signs Date Time Temp Pulse Resp B/P (MAP) Pulse Ox O2 Delivery O2 Flow Rate FiO2 08/09/19 06:00 96.0 87 18 109/62 (78) 93 08/07/19 14:00 1.0 08/04/19 20:56 Nasal Cannula I&O- Last 24 Hours up to 6 AM 08/09/19 06:00 Intake Total 480 ml Output Total 1225 ml Balance -745 ml Laboratory Data Labs 24H Laboratory Tests 2 08/09/19 05:31: Nucleated Red Blood Cells % (auto) 0.0, Anion Gap 7L, Glomerular Filtration Rate > 60.0, Blood Urea Nitrogen 18, Creatinine 0.70, Sodium Level 143, Potassium Level 3.7, Chloride Level 103, Carbon Dioxide Level 33H, Calcium Level 10.0 CBC/BMP Laboratory Tests 08/09/19 05:31 Red Blood Count 4.39, Mean Corpuscular Volume 97.7 H, Mean Corpuscular Hem oglobin 32.3, Mean Corpuscular Hemoglobin Concent 33.1, Red Cell Distribution Width 14.3, Calcium Level 10.0 Microbiology Microbiology 08/02/19 Blood Culture - Final, Complete NO GROWTH AFTER 5 DAYS 08/02/19 Blood Culture - Final, Complete NO GROWTH AFTER 5 DAYS 08/02/19 Blood Culture - Final, Complete NO GROWTH AFTER 5 DAYS 08/02/19 Blood Culture - Final, Complete NO GROWTH AFTER 5 DAYS 08/04/19 Respiratory Virus Panel (PCR) ([facility]) - Final, Complete 08/02/19 Gram Stain - Final, Complete 08/02/19 Sputum Culture - Final, Complete Raoultella Ornithinolytica 08/06/19 Urine Culture - Final, Complete Discharge Medications Scheduled Acetaminophen (Acetaminophen) 500 Mg Tablet, 500 MG PO TID, (Reported) Aspirin (Aspirin) 81 Mg Tab.chew, 81 MG PO DAILY, (Reported) Cyanocobalamin (Vitamin B-12) (B-12) 1,000 Mcg Tablet, 1,000 MCG PO DAILY, (Reported) Divalproex Sodium (Depakote) 125 Mg Tablet.dr, 125 MG PO QHS, (Reported) Ferrous Sulfate (Ferrous Sulfate) 220 Mg/5 Ml Solution, 7.5 ML PO DAILY, (Reported) Fluticasone Propionate (Flovent Hfa) 110 Mcg/Act Aer.w.adap, 2 PUFF INH BID, (Reported) Furosemide (Lasix) 40 Mg Tablet, 40 MG PO DAILY, (Reported) Omeprazole (Omeprazole) 10 Mg Capsule.dr, 10 MG PO DAILY, (Reported) Propylene Glycol/Peg 400/Pf (Systane 0.3-0.4% Eye Drop) 1 Each Droperette, 1 DRP OU BID, (Reported) Simvastatin (Simvastatin) 20 Mg Tablet, 20 MG PO QHS, (Reported) Tamsulosin HCl (Flomax) 0.4 Mg Capsule, 0.8 MG PO QHS, (Reported) Scheduled PRN Acetaminophen (Tylenol) 325 Mg Tablet, 650 MG PO Q4H PRN for PAIN, (Reported) Albuterol Sulfate (Albuterol Sulfate) 0.63 Mg/3 Ml Vial.neb, 0.63 MG INH Q6H PRN for SOB/WHEEZING, (Reported) Bisacodyl (Dulcolax) 10 Mg Supp.rect, 10 MG LA DAILY PRN for CONSTIPATION, (Reported) Milk Of Magnesia (Milk of Magnesia) 2,400 Mg/10 Ml Oral.susp, 10 ML PO DAILY PRN for CONSTIPATION, (Reported) Sodium Phosphate,Dewitt-Dibasic (Enema) 133 Ml Enema, 1 JERARDO LA DAILY PRN for CONSTIPATION, (Reported) Allergies Coded Allergies: No Known Allergies (Verified , 03/08/05) SAIDA FINNEGAN MD Aug 09, 2019 12:37
[2019-09-01] MEDS ORDERED: CYANOCOBALAMIN 1,000 MCG/ML VIAL (J3420) IM SCH (09:00)
== END 2019-08-09 12:00 | DRG 177 ==
LOC: M ED 14:42 → M ED INP 18:58 → M MSPAV 21:18 → OBSVTOIN 08-03 11:53
PROVIDERS: ADMIT Internal Medicine; ATTEND Internal Medicine
DX: J69.0 Pneumonitis due to inhalation of food and vomit (principal); J96.01 Acute respiratory failure with hypoxia; I50.32 Chronic diastolic (congestive) heart failure; F84.0 Autistic disorder; F03.91 Unspecified dementia, unspecified severity, with behavioral disturbance; Q90.9 Down syndrome, unspecified; J43.9 Emphysema, unspecified; K21.9 Gastro-esophageal reflux disease without esophagitis; E78.5 Hyperlipidemia, unspecified; R33.9 Retention of urine, unspecified; I25.10 Atherosclerotic heart disease of native coronary artery without angina pectoris; G40.909 Epilepsy, unspecified, not intractable, without status epilepticus; Z79.82 Long term (current) use of aspirin; Z79.899 Other long term (current) drug therapy; R29.6 Repeated falls; I73.9 Peripheral vascular disease, unspecified; I11.0 Hypertensive heart disease with heart failure; H21 Other disorders of iris and ciliary body

== ENCOUNTER → 2019-08-13 | Outpatient (REF) | payer MEDICARE, BC ==
[~2019-08-13] MED LIST changes: +ALBU0.63 INH; +AMLO5TAB6 PO
[2019-08-13 15:45] LABS: HEMATOCRIT 43.1 % (42.0-52.0); HEMOGLOBIN 14.3 g/dl (13.5-17.5); MEAN CORPUSCULAR HEMOGLOBIN 32.5 pg (27.0-33.0); MEAN CORPUSCULAR HGB CONC 33.2 g/dl (32.0-36.5); PLATELET COUNT, AUTOMATED 241 10^3/uL (150-450); WHITE BLOOD COUNT 10.7 10^3/uL (4.0-10.0)
--- NOTE | 2019-08-13 16:15 | REP ---
Portable chest x-ray: Single view. History: Aspiration pneumonia. Comparison study: August 02, 2019. Findings: The recently noted right lower lobe infiltrate is improved. Bibasilar interstitial fibrosis pattern is seen. No new infiltrate is seen. The heart is not enlarged. Aorta is tortuous and calcific as before. Impression: Bibasilar interstitial fibrosis. No acute infiltrate seen. Recently noted right lower lobe infiltrate has resolved. Electronically Signed by Yovani Mayorga MD 08/13/2019 04:06 P
== END ==
LOC: SKLAB2 14:59
PROVIDERS: ATTEND Nurse Practitioner Family
DX: J69.0 Pneumonitis due to inhalation of food and vomit (principal)

== ENCOUNTER → 2019-08-16 | Outpatient (REF) | payer MEDICARE, BC ==
[~2019-08-16] MED LIST changes: +SIMV20TA2 PO; -SIMV20TA22 PO
[2019-08-16 10:45] LABS: BLOOD UREA NITROGEN 28 MG/DL (7-18); CALCIUM LEVEL 9.2 MG/DL (8.8-10.2); CARBON DIOXIDE LEVEL 33 MEQ/L (21-32); CHLORIDE LEVEL 101 MEQ/L (98-107); CREATININE FOR GFR 0.66 MG/DL (0.70-1.30); GLOMERULAR FILTRATION RATE > 60.0 (>35); GLUCOSE, FASTING 91 MG/DL (70-100); POTASSIUM SERUM 3.4 MEQ/L (3.5-5.1); SODIUM LEVEL 142 MEQ/L (136-145)
== END ==
LOC: SKLAB2 07:00
PROVIDERS: ATTEND Internal Medicine
DX: J18.9 Pneumonia, unspecified organism (principal)